=== PATIENT | female | born 1950 | race Caucasian/White ===

== ENCOUNTER → 2021-02-03 15:16 | Outpatient (BNVA) | payer MEDICARE, MEDICAID, SELFPAY | PROVIDERS: Visit Provider Nurse Practitioner | DX: K22.2 Esophageal obstruction (principal) | CPT/HCPCS: 99202 ==

== ENCOUNTER 2021-10-04 18:22 | Inpatient (IN) | payer MEDICARE, MEDICAID, SELFPAY ==
--- NOTE | ~2021-10-04 | XR_ITS ---
EXAMINATION: XR CHEST CLINICAL INFORMATION: Hypoxia. Covid infection. COMPARISON: Previous chest x-ray most recent 10/04/2021 TECHNIQUE: Frontal view of the chest was obtained. FINDINGS: The cardiac and mediastinal contours are stable. The lung volumes are low. There is bilateral multilobar airspace disease. This is greatest in the left lung and appears increased from previous exam. There is no pleural effusion or pneumothorax. There are degenerative changes of the spine. XR/XR chest 1V IMPRESSION: Low lung volumes and worsening bilateral airspace disease.
--- NOTE | ~2021-10-04 | XR_ITS ---
EXAMINATION: PORTABLE CHEST 1 VIEW CLINICAL INFORMATION: covid . COMPARISON: No recent pertinent prior studies are available for comparison. TECHNIQUE: Portable frontal view of the chest was obtained. FINDINGS: Mild asymmetric elevation of the right hemidiaphragm. Patchy bilateral airspace disease is seen without significant effusion, edema, or pneumothorax. Cardiac and mediastinal silhouettes within normal limits for size with mild vascular calcification in the aorta. Degenerative changes in the spine and shoulders. XR/XR chest 1V IMPRESSION: Patchy bilateral airspace disease concerning for atypical or viral infectious etiology in the acute setting.
--- NOTE | ~2021-10-04 | XR_ITS ---
EXAMINATION: XR CHEST CLINICAL INFORMATION: Increased respiratory rate. Covid. COMPARISON: Chest x-ray 10/06/2021 TECHNIQUE: Frontal view of the chest was obtained. FINDINGS: Stable cardiac silhouette. Diffuse bilateral airspace disease demonstrates interval worsening. I do not appreciate any gross lobar consolidation. No large pleural effusion. No pneumothorax. XR/XR chest 1V IMPRESSION: Worsening diffuse bilateral airspace disease.
[2021-10-04 18:40] VITALS: BP 100/54; PULSE 76; RESP 18; TEMP 39.1; O2SAT 95; BMI 27.4
--- NOTE | 2021-10-04 18:53 | ED.SOB ---
HPI - SOB/Dyspnea General Chief Complaint: Dyspnea Stated Complaint: covid + Time Seen by Provider: 10/04/21 18:50 Source: EMS and RN notes reviewed Mode of arrival: EMS Limitations: altered mental status History of Present Illness HPI Narrative: Patient is 71 years old with history of schizoaffective disorder COPD type 2 diabetes anemia not vaccinated against COVID had COVID-19 positive on 09/30 sent from [facility] living for temperature of 102.7 degrees and saturating 72% at room air and more confused semi responsive patient oxygen improved to 94% on 4 L nasal cannula Related Data Home Medications Medication Instructions Recorded Confirmed aspirin 81 mg chewable tablet 81 mg PO DAILY 02/03/21 benztropine 1 mg tablet 1 mg PO BID 02/03/21 bisacodyl 10 mg rectal suppository 10 mg UT DAILY PRN 02/03/21 (Dulcolax (bisacodyl)) divalproex 125 mg capsule,delayed 250 mg PO QID 02/03/21 release sprinkle estradiol 1 g VAGINAL 3XW 02/03/21 gabapentin 300 mg/6 mL (6 mL) oral 100 mg PO BEDTIME 02/03/21 solution haloperidol 5 mg tablet 5 mg PO DAILY 02/03/21 lactulose 10 gram/15 mL oral 10 g PO BEDTIME 02/03/21 solution (Enulose) levothyroxine 75 mcg capsule 75 mcg PO DAILY 02/03/21 lithium carbonate 300 mg tablet 300 mg PO BID 02/03/21 mirabegron 25 mg tablet,extended 25 mg PO DAILY 02/03/21 release 24 hr (Myrbetriq) olanzapine 10 mg tablet 10 mg PO DAILY 02/03/21 polyvinyl alcohol 1.4 % eye drops 1 drp OPHTHALMIC (EYE) BID-QID PRN 02/03/21 (Artificial Tears (polyvinyl alcohol)) timolol 0.5 %-dorzolamide 2 drp OPHTHALMIC (EYE) 02/03/21 %-latanprost 0.005 % (PF) eye drops umeclidinium 62.5 mcg/actuation 1 inh INHALATION DAILY 02/03/21 blister powder for inhalation (Incruse Ellipta) polyvinyl alcohol 1.4 % eye drops 1 drp OPHTHALMIC (EYE) BID 10/04/21 10/04/21 (Artificial Tears (polyvinyl alcohol)) Allergies Allergy/AdvReac Type Severity Reaction Status Date / Time No Known Allergies Allergy Verified 02/03/21 15:27 Review of Systems Review of Systems: Yes Unobtainable due to mental status [facility] Social History Social History Advance Directives: No Advance Directives Information Provided: Yes Physical Exam Vital Signs: Vital Signs: Last Vital Signs Temp 103.4 F H 10/04/21 21:16 Pulse 72 10/04/21 21:16 Resp 18 10/04/21 21:16 BP 114/88 10/04/21 21:16 Pulse Ox 94 10/04/21 21:16 Oxygen Flow Rate 2 10/04/21 18:40 BMI result Body Mass Index 27.4 Appearance: Alert. And awake. Moderate distress Eyes: PERRLA, No Nystagmus ENT: Pharynx normal. Oral Mucosa moist Neck: Normal inspection. Neck supple. CVS: Sinus tachycardia. Pulses normal. Respiratory: Moderate respiratory distress with bilateral prolonged expiration Equal air entry bilateral, no wheezing/rales/rhonchi Abdomen: Soft and nontender. Bowel sounds are present, no mass palpable, no CVA tenderness Skin: Skin warm and dry. Normal skin color. Normal skin turgor. Extremities: No lower extremity edema. 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 No sensory deficit.No cerebellar signs , cranial nerves II-XII intact MDM - SOB/Dyspnea MDM Narrative Medical decision making narrative: Patient with COVID pneumonia with acute respiratory failure on 4 L of oxygen saturating 95%. Will admit patient for supportive treatment for COVID pneumonia Medical Records Attestation: I reviewed the patient's medical records. Lab Data Attestation: I reviewed the patient's lab results. Result diagrams: 10/04/21 19:52 10/04/21 19:53 Labs: Lab Results 10/04/21 10/04/21 10/04/21 Range/Units 19:52 19:52 19:52 WBC 7.7 (4.8-10.8) X10*3/uL RBC 4.35 (4.20-5.50) X10*6/uL Hgb 12.5 (12.0-16.0) g/dl Hct 40.4 (37.0-47.0) % MCV 92.9 (80.0-98.0) fL MCH 28.7 (27.0-33.0) pg MCHC 30.9 L (31.0-35.0) g/dl RDW 14.0 (11.0-16.0) % Plt Count 174 (160-400) X10*3/uL MPV 10.8 (9.4-12.3) fL Immature Gran % (Auto) 0.7 H (0.0-0.4) % Neut % (Auto) 77.9 H (45-73) % Lymph % (Auto) 15.0 L (20-40) % [place] % (Auto) 6.3 (2-11) % Eos % (Auto) 0.0 (0-4) % Baso % (Auto) 0.1 (0-2) % Lymph # (Auto) 1.2 (1.2-4.9) X10*3/uL [place] # (Auto) 0.5 (0.1-1.2) X10*3/uL Eos # (Auto) 0.0 (0.0-0.4) X10*3/uL Baso # (Auto) 0.0 (0.0-0.2) X10*3/uL Abs Immat Gran (auto) 0.05 H (0.00-0.03) X10*3/uL Absolute Neuts (auto) 6.0 (2.0-8.3) x10*3/uL Absolute Nucleated RBC 0.000 (0.0-0.012) X10*3/uL Nucleated RBC % (auto) 0.0 (0.0-0.2) /100WBC PT (9.9-13.0) SEC INR (0.9-1.1) Sodium (135-145) mmol/L Potassium (3.3-5.1) mmol/L Chloride (96-108) mmol/L Carbon Dioxide (22-29) mmol/L Anion Gap (12-20) BUN (9-16) mg/dL Creatinine (0.5-1.4) mg/dL Estim Creat Clear Calc Estimated GFR Random Glucose (60-115) mg/dL Lactic Acid 0.9 (0.5-2.0) mmol/L Calcium (8.4-10.2) mg/dL Magnesium (1.6-2.6) mg/dL Total Bilirubin (0.0-1.0) mg/dL AST (5-31) U/L ALT (0-31) U/L Alkaline Phosphatase (39-117) U/L B-Natriuretic Peptide (<100) pg/mL Total Protein (6.5-8.0) g/dL Albumin (3.5-5.0) g/dL Procalcitonin ng/mL COVID-19 (MARTINA) Positive A (Negative) COVID-19 Clin Com See Note 10/04/21 10/04/21 10/04/21 Range/Units 19:53 19:53 19:53 WBC (4.8-10.8) X10*3/uL RBC (4.20-5.50) X10*6/uL Hgb (12.0-16.0) g/dl Hct (37.0-47.0) % MCV (80.0-98.0) fL MCH (27.0-33.0) pg MCHC (31.0-35.0) g/dl RDW (11.0-16.0) % Plt Count (160-400) X10*3/uL MPV (9.4-12.3) fL Immature Gran % (Auto) (0.0-0.4) % Neut % (Auto) (45-73) % Lymph % (Auto) (20-40) % [place] % (Auto) (2-11) % Eos % (Auto) (0-4) % Baso % (Auto) (0-2) % Lymph # (Auto) (1.2-4.9) X10*3/uL [place] # (Auto) (0.1-1.2) X10*3/uL Eos # (Auto) (0.0-0.4) X10*3/uL Baso # (Auto) (0.0-0.2) X10*3/uL Abs Immat Gran (auto) (0.00-0.03) X10*3/uL Absolute Neuts (auto) (2.0-8.3) x10*3/uL Absolute Nucleated RBC (0.0-0.012) X10*3/uL Nucleated RBC % (auto) (0.0-0.2) /100WBC PT 14.7 H (9.9-13.0) SEC INR 1.3 H (0.9-1.1) Sodium 144 (135-145) mmol/L Potassium 4.3 (3.3-5.1) mmol/L Chloride 111 H (96-108) mmol/L Carbon Dioxide 25 (22-29) mmol/L Anion Gap 12 (12-20) BUN 27 H (9-16) mg/dL Creatinine 0.82 (0.5-1.4) mg/dL Estim Creat Clear Calc 65.5 Estimated GFR > 60 Random Glucose 108 (60-115) mg/dL Lactic Acid (0.5-2.0) mmol/L Calcium 8.1 L (8.4-10.2) mg/dL Magnesium 3.4 H (1.6-2.6) mg/dL Total Bilirubin 0.3 (0.0-1.0) mg/dL AST 37 H (5-31) U/L ALT 12 (0-31) U/L Alkaline Phosphatase 53 (39-117) U/L B-Natriuretic Peptide 78 (<100) pg/mL Total Protein 5.9 L (6.5-8.0) g/dL Albumin 3.2 L (3.5-5.0) g/dL Procalcitonin ng/mL COVID-19 (MARTINA) (Negative) COVID-19 Clin Com 10/04/21 Range/Units 19:53 WBC (4.8-10.8) X10*3/uL RBC (4.20-5.50) X10*6/uL Hgb (12.0-16.0) g/dl Hct (37.0-47.0) % MCV (80.0-98.0) fL MCH (27.0-33.0) pg MCHC (31.0-35.0) g/dl RDW (11.0-16.0) % Plt Count (160-400) X10*3/uL MPV (9.4-12.3) fL Immature Gran % (Auto) (0.0-0.4) % Neut % (Auto) (45-73) % Lymph % (Auto) (20-40) % [place] % (Auto) (2-11) % Eos % (Auto) (0-4) % Baso % (Auto) (0-2) % Lymph # (Auto) (1.2-4.9) X10*3/uL [place] # (Auto) (0.1-1.2) X10*3/uL Eos # (Auto) (0.0-0.4) X10*3/uL Baso # (Auto) (0.0-0.2) X10*3/uL Abs Immat Gran (auto) (0.00-0.03) X10*3/uL Absolute Neuts (auto) (2.0-8.3) x10*3/uL Absolute Nucleated RBC (0.0-0.012) X10*3/uL Nucleated RBC % (auto) (0.0-0.2) /100WBC PT (9.9-13.0) SEC INR (0.9-1.1) Sodium (135-145) mmol/L Potassium (3.3-5.1) mmol/L Chloride (96-108) mmol/L Carbon Dioxide (22-29) mmol/L Anion Gap (12-20) BUN (9-16) mg/dL Creatinine (0.5-1.4) mg/dL Estim Creat Clear Calc Estimated GFR Random Glucose (60-115) mg/dL Lactic Acid (0.5-2.0) mmol/L Calcium (8.4-10.2) mg/dL Magnesium (1.6-2.6) mg/dL Total Bilirubin (0.0-1.0) mg/dL AST (5-31) U/L ALT (0-31) U/L Alkaline Phosphatase (39-117) U/L B-Natriuretic Peptide (<100) pg/mL Total Protein (6.5-8.0) g/dL Albumin (3.5-5.0) g/dL Procalcitonin 0.11 ng/mL COVID-19 (MARTINA) (Negative) COVID-19 Clin Com ECG Data Attestation: I personally reviewed and interpreted this ECG as follows: Interpretation: Normal sinus rhythm heart rate 73 beats per minute normal intervals normal axis no acute ischemic changes impression normal EKG Discharge Plan Discharge Clinical Impression: Acute respiratory failure due to COVID-19 Patient Disposition: Admitted As Inpatient
--- NOTE | 2021-10-04 19:00 | ECG_ITS ---
Test Reason : Shortness of breath Blood Pressure : / mmHG Vent. Rate : 073 BPM Atrial Rate : 073 BPM P-R Int : 142 ms QRS Dur : 078 ms QT Int : 388 ms P-R-T Axes : -14 -13 059 degrees QTc Int : 427 ms Normal sinus rhythm Normal ECG No previous ECGs available Referred By: Darrel Regalado Electronically Signed By:DEJON WEISS MD
[2021-10-04] MEDS: Albuterol/Iprat 2.5/0.5MG 3 ML AMPUL.NEB INHALE (19:57)
[2021-10-04 19:59] LABS: MANUAL DIFF FLAG NO
[2021-10-04 20:01] LABS: Basophils Percent Auto 0.1 % (0-2); Hematocrit 40.4 % (37.0-47.0); Hemoglobin 12.5 g/dl (12.0-16.0); Imm Gran Abs Auto 0.05 X10*3/uL (0.00-0.03); Imm Gran Pct Auto 0.7 % (0.0-0.4); Lymphocytes Absolute Auto 1.2 X10*3/uL (1.2-4.9); Mean Corpuscular HGB Conc 30.9 g/dl (31.0-35.0); Mean Corpuscular Hemoglobin 28.7 pg (27.0-33.0); Mean Corpuscular Volume 92.9 fL (80.0-98.0); Mean Platelet Volume 10.8 fL (9.4-12.3); Monocytes Absolute Auto 0.5 X10*3/uL (0.1-1.2); Monocytes Percent Auto 6.3 % (2-11); Neutrophils Percent Auto 77.9 % (45-73); Platelet Count 174 X10*3/uL (160-400); Red Blood Count 4.35 X10*6/uL (4.20-5.50); White Blood Count 7.7 X10*3/uL (4.8-10.8)
[2021-10-04 20:06] LABS: INTERNATIONAL NORM RATIO 1.3 (0.9-1.1); Prothrombin Time 14.7 SEC (9.9-13.0)
[2021-10-04 20:11] LABS: COVID-19 Test Positive (Negative)
[2021-10-04 20:16] LABS: Lactic Acid 0.9 mmol/L (0.5-2.0)
[2021-10-04 20:21] LABS: Alanine Aminotransferase 12 U/L (0-31); Albumin Level 3.2 g/dL (3.5-5.0); Alkaline Phosphatase 53 U/L (39-117); Anion Gap 12 (12-20); Aspartate Amino Transferase 37 U/L (5-31); Bilirubin Total 0.3 mg/dL (0.0-1.0); Blood Urea Nitrogen 27 mg/dL (9-16); Calcium 8.1 mg/dL (8.4-10.2); Carbon Dioxide 25 mmol/L (22-29); Chloride 111 mmol/L (96-108); Creatinine Clr Calc Pharmacy 65.5; Estimated Glomerular Filt Rate > 60; Glucose Random 108 mg/dL (60-115); Magnesium 3.4 mg/dL (1.6-2.6); Potassium 4.3 mmol/L (3.3-5.1); Sodium 144 mmol/L (135-145); Total Protein 5.9 g/dL (6.5-8.0)
[2021-10-04 20:28] LABS: B Type Natriuretic Peptide 78 pg/mL (<100)
[2021-10-04] MEDS: cefTRIAXone sodium 1 GM in 0.9 % Sodium Chloride 50 ML IV (20:30)
--- NOTE | 2021-10-04 20:37 | P.HPHOSP_ITS ---
History of Present Illness Date of Service: 10/04/21 Chief Complaint: hypoxic this is a 71 yo F with hx of pschizophrenia, DM, COPD, and chronic anemia who is sent to the [facility] from detention for hypoxia. per documentation pt was found to be satidelvin friedman the 70s on RA. Pt herself is awake, but very lethargic and confused. she is not answering questions and just moaning. unable to get my history from her. No ROS given her medical status,. Pt is unvaccinated against covid. was tested positive for COVID 19 on 09/30 at the facility. Pt was also found to have a temp of 102 at the detention. On arrival to our hospital pt found to have a Temp of 102.3 , BP of 100/54. pt currently on 3L of [place] anabelle friedman the mid 80s. labs reviewed, unremarkable, procalcitonin 0.11, chest xray showed patchy bilateral airspace ds [place] acerning for atypical or viral depthinfectious etiology in the acute setting Pt will be admitted for further management PMHX obtained from [facility] home notes Review of Systems Review of Systems: Yes all other systems are reviewed and are negative [facility] Medical History (Updated 10/05/21 @ 03:19 by Abiel Lopez MD) COPD (chronic obstructive pulmonary disease) Diabetes Schizophrenia Social History Advance Directives: No Advance Directives Information Provided: Yes Meds Allergies Allergy/AdvReac Type Severity Reaction Status Date / Time No Known Allergies Allergy Verified 02/03/21 15:27 Home Medications Medication Instructions Recorded Confirmed Last Taken Type aspirin 81 mg chewable tablet 81 mg PO DAILY 02/03/21 10/04/21 10/03/21 History benztropine 1 mg tablet 1 mg PO BID 02/03/21 10/04/21 10/03/21 History divalproex 125 mg capsule,delayed 1,500 mg PO BEDTIME 02/03/21 10/04/21 10/03/21 History release sprinkle estradiol 2 g VAGINAL MOWEFR@2100 02/03/21 10/04/21 10/03/21 History haloperidol 5 mg tablet 5 mg PO BID 02/03/21 10/04/21 10/03/21 History mirabegron 25 mg tablet,extended 25 mg PO DAILY 02/03/21 10/04/21 10/03/21 History release 24 hr (Myrbetriq) olanzapine 10 mg tablet 10 mg PO DAILY 02/03/21 10/04/21 10/03/21 History umeclidinium 62.5 mcg/actuation 1 inh INHALATION DAILY 02/03/21 10/04/21 10/03/21 History blister powder for inhalation (Incruse Ellipta) bisacodyl 10 mg rectal suppository 10 mg AL Q2D@1000 10/04/21 10/04/21 10/01/21 History divalproex 125 mg capsule,delayed 500 mg PO DAILY 10/04/21 10/04/21 10/03/21 History release sprinkle (Depakote Sprinkles) gabapentin 300 mg capsule 300 mg PO DAILY 10/04/21 10/04/21 10/03/21 History latanoprost 0.005 % eye drops 1 drp OPHTHALMIC (EYE) BEDTIME 10/04/21 10/04/21 10/03/21 History levothyroxine 88 mcg tablet 88 mcg PO DAILY@0600 10/04/21 10/04/21 10/04/21 History lithium carbonate 300 mg 300 mg PO BID 10/04/21 10/04/21 10/03/21 History tablet,extended release olanzapine 20 mg tablet 20 mg PO BEDTIME 10/04/21 10/04/21 10/03/21 History omeprazole 40 mg capsule,delayed 40 mg PO DAILY@0630 10/04/21 10/04/21 10/04/21 History release polyethylene glycol 3350 17 17 g PO DAILY 10/04/21 10/04/21 10/03/21 History gram/dose oral powder (Miralax) polyvinyl alcohol 1.4 % eye drops 1 drp OPHTHALMIC (EYE) BID 10/04/21 10/04/21 10/04/21 History (Artificial Tears (polyvinyl alcohol)) Physical Exam Vital Signs and Narrative: Vital Signs: Last Vital Signs Temp 102.3 F H 10/04/21 18:40 Pulse 76 10/04/21 18:40 Resp 18 10/04/21 18:40 BP 100/54 L 10/04/21 18:40 Pulse Ox 95 01/25/22 18:40 Oxygen Flow Rate 2 10/04/21 18:40 BMI result Body Mass Index 27.4 Const: Other: confused, not following commads Eyes: Pupils: Equal, round and reactive pupils present Resp: Other: bilateral crackles Effort & Inspection: normal respiratory effort Cardio: Rate: regular rate Rhythm: regular rhythm GI: Palpation (GI): Soft to palpation Auscultation: normal bowel sounds Skin: General skin exam: no rashes or lesions noted Neuro: Cranial nerves: Yes Equal, round and reactive pupils present Extrem: General: Yes normal to inspection and Yes no pedal edema Results Labs CBC and Chem 7: 10/04/21 19:52 10/04/21 19:53 Labs: Laboratory Results - last 24 hr 10/04/21 10/04/21 10/04/21 19:52 19:52 19:52 MCV 92.9 MCH 28.7 MCHC 30.9 L RDW 14.0 Plt Count 174 MPV 10.8 Immature Gran % (Auto) 0.7 H Neut % (Auto) 77.9 H Lymph % (Auto) 15.0 L [place] % (Auto) 6.3 Eos % (Auto) 0.0 Baso % (Auto) 0.1 Lymph # (Auto) 1.2 [place] # (Auto) 0.5 Eos # (Auto) 0.0 Baso # (Auto) 0.0 Abs Immat Gran (auto) 0.05 H Absolute Neuts (auto) 6.0 Absolute Nucleated RBC 0.000 Nucleated RBC % (auto) 0.0 PT INR Anion Gap Estim Creat Clear Calc Estimated GFR Random Glucose Lactic Acid 0.9 Calcium Magnesium Total Bilirubin AST ALT Alkaline Phosphatase B-Natriuretic Peptide Total Protein Albumin COVID-19 (MARTINA) Positive A COVID-19 Clin Com See Note 10/04/21 10/04/21 10/04/21 19:53 19:53 19:53 MCV MCH MCHC RDW Plt Count MPV Immature Gran % (Auto) Neut % (Auto) Lymph % (Auto) [place] % (Auto) Eos % (Auto) Baso % (Auto) Lymph # (Auto) [place] # (Auto) Eos # (Auto) Baso # (Auto) Abs Immat Gran (auto) Absolute Neuts (auto) Absolute Nucleated RBC Nucleated RBC % (auto) PT 14.7 H INR 1.3 H Anion Gap 12 Estim Creat Clear Calc 65.5 Estimated GFR > 60 Random Glucose 108 Lactic Acid Calcium 8.1 L Magnesium 3.4 H Total Bilirubin 0.3 AST 37 H ALT 12 Alkaline Phosphatase 53 B-Natriuretic Peptide 78 Total Protein 5.9 L Albumin 3.2 L COVID-19 (MARTINA) COVID-19 Clin Com Imaging Radiologist's Impressions: Impressions Chest X-Ray 10/04/21 19:20 IMPRESSION: Patchy bilateral airspace disease concerning for atypical or viral infectious etiology in the acute setting. Assessment and Plan (1) Acute respiratory failure due to COVID-19: Status: Acute (2) Sepsis: Status: Acute this is a 71 yo F with pmx as above who is a [facility], unvaccinated aginast covid who presents to hospital with acute hypoxic resp failure # Acute hypoxic resp failure - 2/2 covid 19 PNA - No evidence to suggest PE - Pro-calcitonin 0.11 - likely viral - dexamethasone - duoneb tx given hx of COPD - monitor resp status - infectious ds consulted # Sepsis - most likely 2/2 covid 19 pna - cxr as above - will obtain UA - dexamethasone - no abx at this time as no evidence of bacterial pna - follow cultures # Mood ds: - continue home mood stabilizers # Seizure? - continue epileptic mes DVT ppx: lovenox Quality Stroke Does the patient have a stroke diagnosis?: No VTE Prior VTE?: No VTE Risk Level:: Medical - moderate - high VTE Device Contraindication: Treatment Not Indicated VTE Drug Contraindication: N/A - Med Ordered
[2021-10-04] MEDS: Azithromycin 500 MG in 0.9 % Sodium Chloride 250 ML 125 MG IV (21:08)
[2021-10-04] MEDS: Acetaminophen 325 MG TABLET 650 MG PO (21:09)
[2021-10-04] MEDS: Enoxaparin Sodium 40 MG/0.4 ML SYRINGE SUBCUT (21:10)
[2021-10-04 21:16] VITALS: BP 114/88; PULSE 72; RESP 18; TEMP 39.7; O2SAT 94
[2021-10-04] MEDS: dexAMETHasone sod phosphate 4 MG/ML VIAL 6 MG IVPUSH ×2 (21:20→22:01)
[2021-10-04 21:23] LABS: Procalcitonin 0.11 ng/mL
--- NOTE | 2021-10-04 22:01 | PHA.MEDREC ---
MED REC COMPLETE, NO ISSUES Pharmacy Consult ? Medication Reconciliation Pharmacy has completed the medication reconciliation.
[2021-10-05] VITALS (12 sets, daily range): BP systolic 78–141; BP diastolic 46–74; PULSE 55–115; RESP 18–23; TEMP 36.4–38.1; O2SAT 83–99
[2021-10-05] MEDS: Albuterol/Iprat 2.5/0.5MG 3 ML AMPUL.NEB INHALE ×2 (07:29→19:26)
[2021-10-05 07:31] LABS: Glucose, Whole Blood 121 mg/dL (60-115)
[2021-10-05] MEDS: Omeprazole 40 MG CAPSULE.DR PO (07:56)
[2021-10-05] MEDS: Levothyroxine Sodium 88 MCG TABLET PO (07:56)
--- NOTE | 2021-10-05 08:05 | PC.NURSE ---
PT AWAKE AND ASKING TO HAVE APPLE JUICE AND WESLEY TATIANA. SHE HAS POOR SELF AWARENESS FOR SAFETY, SHE IS TREMULOUS WHEN TAKING MEDS. SHE ALSO APPEARS TO HAVE THRUSH LIKE APPEARANCE TO HER TONGUE. NON COMPLIANT WITH KEEPING HER NASAL CANNULA IN PLACE TO SUPPORT HER O2
[2021-10-05 09:15] LABS: MANUAL DIFF FLAG NO
[2021-10-05 09:17] LABS: Basophils Percent Auto 0.1 % (0-2); Hematocrit 42.2 % (37.0-47.0); Hemoglobin 12.7 g/dl (12.0-16.0); Imm Gran Abs Auto 0.05 X10*3/uL (0.00-0.03); Imm Gran Pct Auto 0.6 % (0.0-0.4); Lymphocytes Absolute Auto 1.4 X10*3/uL (1.2-4.9); Lymphocytes Percent Auto 15.5 % (20-40); Mean Corpuscular HGB Conc 30.1 g/dl (31.0-35.0); Mean Corpuscular Hemoglobin 28.4 pg (27.0-33.0); Mean Corpuscular Volume 94.4 fL (80.0-98.0); Mean Platelet Volume 10.4 fL (9.4-12.3); Monocytes Absolute Auto 0.6 X10*3/uL (0.1-1.2); Monocytes Percent Auto 6.9 % (2-11); Neutrophils Absolute Auto 6.8 x10*3/uL (2.0-8.3); Neutrophils Percent Auto 76.9 % (45-73); Platelet Count 184 X10*3/uL (160-400); Red Blood Count 4.47 X10*6/uL (4.20-5.50); Red Cell Distribution Width 13.7 % (11.0-16.0); White Blood Count 8.8 X10*3/uL (4.8-10.8)
[2021-10-05 09:35] LABS: Anion Gap 17 (12-20); Blood Urea Nitrogen 30 mg/dL (9-16); Calcium 8.5 mg/dL (8.4-10.2); Carbon Dioxide 24 mmol/L (22-29); Chloride 110 mmol/L (96-108); Creatinine Clr Calc Pharmacy 70.7; Estimated Glomerular Filt Rate > 60; Glucose Random 128 mg/dL (60-115); Potassium 3.5 mmol/L (3.3-5.1); Sodium 147 mmol/L (135-145)
[2021-10-05] MEDS: Lithium Carbonate ER 300 MG TABLET.ER PO ×2 (10:10→21:15)
[2021-10-05] MEDS: OLANZapine 10 MG TABLET PO (10:11)
[2021-10-05] MEDS: Divalproex Sodium Sprinkles 125 MG CAP.DR.SPR 500 MG PO (10:12)
[2021-10-05] MEDS: Benztropine Mesylate 1 MG TABLET PO ×2 (10:12→21:15)
[2021-10-05] MEDS: Gabapentin 300 MG CAPSULE PO (10:17)
[2021-10-05] MEDS: Aspirin 81 MG TAB.CHEW PO (10:18)
[2021-10-05] MEDS: dexAMETHasone sod phosphate 4 MG/ML VIAL 6 MG IVPUSH (10:19)
[2021-10-05] MEDS: bisacodyL 10 MG SUPP.RECT PR (10:19)
[2021-10-05] MEDS: HaloperidoL 5 MG TABLET PO ×2 (10:20→21:15)
[2021-10-05] MEDS: polyethylene glycoL 3350 17 GM POWD.PACK PO (10:22)
[2021-10-05] MEDS: Artificial Tears 15 ML DROPS 1 DROP EYE-BOTH (10:24)
[2021-10-05] MEDS: Mirabegron 25 MG TAB.ER.24H PO (10:25)
--- NOTE | 2021-10-05 10:45 | PC.NURSE ---
INCONTIENT OF LARGE AMOUNT OF STOOL. PT CLEANED AND REPOSITIONED, MEDICATED CHARTED.
--- NOTE | 2021-10-05 11:38 | MHC.CM.ED ---
Attempted to meet with patient in regards to discharge planning. Nursing care currently being provided. 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 Patient is wheelchair bound at baseline. Patient tested positive for Covid at facility on 09/30. Copy of guardianship obtained from [facility]. Anticipate patient will return to [facility] via BLS when medically stable. IMM explained and sent via certified mail. Continue to monitor for d/c needs.
[2021-10-05 13:28] LABS: Glucose, Whole Blood 95 mg/dL (60-115)
--- NOTE | 2021-10-05 13:54 | PM.EVENT ---
Event Note Date of Service: 10/05/21 Event Note: Rapid response called at 1345 due to unresponsiveness. was tx from the ED and was admitted for covid hypoxia and sepsis. She was stable in the ED with blood pressures within acceptable limits. She was given a dose of haldol for agitation in the ED at 1020 which may or may not have contributed to her sudden hypotension and unresponsiveness. Nevertheless it took about 5 minutes to get a response with sternal rub. Her blood pressure was noted to be 78/46 and several times remained similar. Neck IJ difficult to run fluids. new IV lines placed and 2 liters of IV fluids ordered to run as bolus. BP came up to 80's systolic. Dr. Doc East came up to see the patient and agreed to continue fluids and follow BP, no ICU needed at this time. Will follow blood pressures, avoid sedative and antihypertensive medications.
[2021-10-05] MEDS: 0.9 % Sodium Chloride 1,000 ML 999 ML IVCONT ×2 (14:00→15:22)
--- NOTE | 2021-10-05 14:06 | P.PNIM_ITS ---
Subjective Subjective Date of Service: 10/05/21 Review of Systems Follow up covid 19 hypoxia confused, unable to give hx Physical Exam Verdana 4l Vital Signs: Verdana 4d Verdana 4d Vital Signs: Verdana 4d Verdana 4Bd Last Vital Signs Verdana 4d Design Technology Teacher New 4d [place] New 4d Temp 97.7 F 10/05/21 13:15 Design Technology Teacher New 4d Pulse 55 10/05/21 13:15 Design Technology Teacher New 4d Resp 23 H 10/05/21 13:15 BP 78/46 L 10/05/21 13:15 Pulse Ox 91 L 10/05/21 13:15 Oxygen Flow Rate 2 10/04/21 18:40 BMI result Body Mass Index 27.4 Appearing in no acute distress lung sounds are clear to auscultation heart regular rate rhythm, clear S1, S2 positive bowel sounds, abdomen is soft, nontender neuro patient is alert, short episode of unresponsiveness Objective Data Active Medications Acetaminophen (Acetaminophen 325 Mg Tablet) 650 mg PO Q6H PRN PRN Reason: Pain, Mild (Pain Scale 1-3) Albuterol/Ipratropium (Albuterol/Iprat 2.5/0.5mg 3 Ml Ampul.Neb) 3 ml INHALE RQ4H PRN PRN Reason: Shortness of Breath/Wheezing Albuterol/Ipratropium (Albuterol/Iprat 2.5/0.5mg 3 Ml Ampul.Neb) 3 ml INHALE RQ4H WHILE AWAKE [facility] Last Admin: 10/05/21 12:07 Dose: Not Given Documented by: KATINA Non-Admin Reason: Not In Room Artificial Tears (Artificial Tears 15 Ml Drops) 1 drop EYE-BOTH BID [facility] Last Admin: 10/05/21 10:24 Dose: 1 drop Documented by: ANURAG Aspirin (Aspirin 81 Mg Tab.Chew) 81 mg PO DAILY [facility] Last Admin: 10/05/21 10:18 Dose: 81 mg Documented by: ANURAG Benztropine Mesylate (Benztropine Mesylate 1 Mg Tablet) 1 mg PO BID [facility] Last Admin: 10/05/21 10:12 Dose: 1 mg Documented by: ANURAG Bisacodyl (Bisacodyl 10 Mg Supp.Rect) 10 mg CO Q2D@1000 [facility] Last Admin: 10/05/21 10:19 Dose: 10 mg Documented by: ANURAG Dexamethasone Sodium Phosphate (Dexamethasone Sod Phosphate 4 Mg/Ml Vial) 6 mg IVPUSH DAILY [facility] Last Admin: 10/05/21 10:19 Dose: 6 mg Documented by: ANURAG Dextrose (Dextrose 50 % 25 Gm/50 Ml Syringe) 25 gm IVPUSH Q15M PRN; Protocol PRN Reason: per Hypoglycemia Standing Ord. Divalproex Sodium (Divalproex Sodium Sprinkles 125 Mg ) 500 mg PO DAILY [facility] Last Admin: 10/05/21 10:12 Dose: 500 mg Documented by: ANURAG Divalproex Sodium (Divalproex Sodium Sprinkles 125 Mg ) 1,500 mg PO BEDTIME [facility] Docusate Sodium (Docusate Sodium 100 Mg Capsule) 100 mg PO DAILY PRN PRN Reason: Constipation Enoxaparin Sodium (Enoxaparin Sodium 40 Mg/0.4 Ml Syringe) 40 mg SUBCUT Q24H [facility] Last Admin: 10/04/21 21:10 Dose: 40 mg Documented by: ASHTYN Gabapentin (Gabapentin 300 Mg Capsule) 300 mg PO DAILY [facility] Last Admin: 10/05/21 10:17 Dose: 300 mg Documented by: ANURAG Glucose (Glucose Gel 15 Gm Gel..Gram.) 15 gm PO Q15M PRN; Protocol PRN Reason: per Hypoglycemia Standing Ord. Haloperidol (Haloperidol 5 Mg Tablet) 5 mg PO BID [facility] Last Admin: 10/05/21 10:20 Dose: 5 mg Documented by: ANURAG Ceftriaxone Sodium 1 gm/ (Sodium Chloride) 50 mls @ 100 mls/hr IV Q24H [facility] Azithromycin 500 mg/ Sodium (Chloride) 250 mls @ 125 mls/hr IV Q24H [facility] Last Infusion: 10/05/21 02:40 Dose: 0 mls/hr Documented by: ASHTYN Sodium Chloride (Ns) 1,000 mls @ 999 mls/hr IVCONT .Q1H1M [facility] Stop: 10/05/21 15:45 Insulin Human Lispro (Insulin Lispro 100 Unit/Ml 3 Ml Vial) 0 unit SUBCUT QIDACHS [facility]; Protocol Last Admin: 10/05/21 14:03 Dose: Not Given Documented by: SUNI Non-Admin Reason: bs 91 Latanoprost (Latanoprost 0.005 % Ophth Iza 2.5 Ml Drops) 1 drop EYE-BOTH BEDTIME [facility] Levothyroxine Sodium (Levothyroxine Sodium 88 Mcg Tablet) 88 mcg PO DAILY@0600 [facility] Last Admin: 10/05/21 07:56 Dose: 88 mcg Documented by: ANURAG [place] Carbonate ([place] Carbonate Er 300 Mg Tablet.Er) 300 mg PO BID [facility] Last Admin: 10/05/21 10:10 Dose: 300 mg Documented by: ANURAG Mirabegron (Mirabegron 25 Mg Tab.Er.24h) 25 mg PO DAILY [facility] Last Admin: 10/05/21 10:25 Dose: 25 mg Documented by: ANURAG Olanzapine (Olanzapine 10 Mg Tablet) 10 mg PO DAILY [facility] Last Admin: 10/05/21 10:11 Dose: 10 mg Documented by: ANURAG Olanzapine (Olanzapine 10 Mg Tablet) 20 mg PO BEDTIME [facility] Omeprazole (Omeprazole 40 Mg Capsule.Dr) 40 mg PO DAILY@0630 [facility] Last Admin: 10/05/21 07:56 Dose: 40 mg Documented by: ANURAG Ondansetron HCl (Ondansetron Hcl 4 Mg/2 Ml Vial) 4 mg IVPUSH Q8H PRN PRN Reason: Nausea and Vomiting Polyethylene Glycol (Polyethylene Glycol 3350 17 Gm Powd.Pack) 17 gm PO DAILY [facility] Last Admin: 10/05/21 10:22 Dose: 17 gm Documented by: ANURAG Tiotropium [place] (Tiotropium [place] 18 Mcg Cap.W.Dev) 1 puff INHALE RDAILY [facility] Labs CBC & Chem 7: 10/05/21 09:11 10/05/21 09:11 Labs: Laboratory Results - last 24 hr 10/04/21 10/04/21 10/04/21 19:52 19:52 19:52 MCV 92.9 MCH 28.7 MCHC 30.9 L RDW 14.0 Plt Count 174 MPV 10.8 Immature Gran % (Auto) 0.7 H Neut % (Auto) 77.9 H Lymph % (Auto) 15.0 L [place] % (Auto) 6.3 Eos % (Auto) 0.0 Baso % (Auto) 0.1 Lymph # (Auto) 1.2 [place] # (Auto) 0.5 Eos # (Auto) 0.0 Baso # (Auto) 0.0 Abs Immat Gran (auto) 0.05 H Absolute Neuts (auto) 6.0 Absolute Nucleated RBC 0.000 Nucleated RBC % (auto) 0.0 PT INR Anion Gap Estim Creat Clear Calc Estimated GFR POC Glucose Random Glucose Lactic Acid 0.9 Calcium Magnesium Total Bilirubin AST ALT Alkaline Phosphatase B-Natriuretic Peptide Total Protein Albumin Procalcitonin COVID-19 (MARTINA) Positive A COVID-19 Clin Com See Note 10/04/21 10/04/21 10/04/21 19:53 19:53 19:53 MCV MCH MCHC RDW Plt Count MPV Immature Gran % (Auto) Neut % (Auto) Lymph % (Auto) [place] % (Auto) Eos % (Auto) Baso % (Auto) Lymph # (Auto) [place] # (Auto) Eos # (Auto) Baso # (Auto) Abs Immat Gran (auto) Absolute Neuts (auto) Absolute Nucleated RBC Nucleated RBC % (auto) PT 14.7 H INR 1.3 H Anion Gap 12 Estim Creat Clear Calc 65.5 Estimated GFR > 60 POC Glucose Random Glucose 108 Lactic Acid Calcium 8.1 L Magnesium 3.4 H Total Bilirubin 0.3 AST 37 H ALT 12 Alkaline Phosphatase 53 B-Natriuretic Peptide 78 Total Protein 5.9 L Albumin 3.2 L Procalcitonin COVID-19 (MARTINA) COVID-19 Sealed Com 10/04/21 10/05/21 10/05/21 19:53 07:18 09:11 MCV 94.4 MCH 28.4 MCHC 30.1 L RDW 13.7 Plt Count 184 MPV 10.4 Immature Gran % (Auto) 0.6 H Neut % (Auto) 76.9 H Lymph % (Auto) 15.5 L [place] % (Auto) 6.9 Eos % (Auto) 0.0 Baso % (Auto) 0.1 Lymph # (Auto) 1.4 [place] # (Auto) 0.6 Eos # (Auto) 0.0 Baso # (Auto) 0.0 Abs Immat Gran (auto) 0.05 H Absolute Neuts (auto) 6.8 Absolute Nucleated RBC 0.000 Nucleated RBC % (auto) 0.0 PT INR Anion Gap Estim Creat Clear Calc Estimated GFR POC Glucose 121 H Random Glucose Lactic Acid Calcium Magnesium Total Bilirubin AST ALT Alkaline Phosphatase B-Natriuretic Peptide Total Protein Albumin Procalcitonin 0.11 COVID-19 (MARTINA) COVID-19 Clin Com 10/05/21 10/05/21 09:11 13:25 MCV MCH MCHC RDW Plt Count MPV Immature Gran % (Auto) Neut % (Auto) Lymph % (Auto) [place] % (Auto) Eos % (Auto) Baso % (Auto) Lymph # (Auto) [place] # (Auto) Eos # (Auto) Baso # (Auto) Abs Immat Gran (auto) Absolute Neuts (auto) Absolute Nucleated RBC Nucleated RBC % (auto) PT INR Anion Gap 17 Estim Creat Clear Calc 70.7 Estimated GFR > 60 POC Glucose 95 Random Glucose 128 H Lactic Acid Calcium 8.5 Magnesium Total Bilirubin AST ALT Alkaline Phosphatase B-Natriuretic Peptide Total Protein Albumin Procalcitonin COVID-19 (MARTINA) COVID-19 Clin Com Assessment and Plan (1) Sepsis: Status: Acute (2) Acute respiratory failure due to COVID-19: Status: Acute Plan This is a 71 yo F with pmx as above who is a [facility], unvaccinated against covid who presents to hospital with acute hypoxic resp failure Acute metabolic encephalopathy Sudden, possibly secondary to hypotension vs medication related Responded to sternal rub continue to follow mental status closely Hypotension rapid response called, see event note 2 liter bolus now follow BP closely avoid antihypertensive medications Acute hypoxic resp failure covid 19 PNA No evidence to suggest PE Pro-calcitonin 0.11 - likely viral dexamethasone duoneb tx given hx of COPD monitor resp status ID consulted Viral Sepsis secondary to covid 19 pna will obtain UA follow cultures Mood continue home mood stabilizers Seizure? continue home medications DVT ppx: lovenox Attending Dr. Lance DNR Quality Stroke Does the patient have a stroke diagnosis?: No VTE Prior VTE?: No VTE Risk Level:: Medical - moderate - high VTE Device Contraindication: Treatment Not Indicated VTE Drug Contraindication: N/A - Med Ordered
[2021-10-05 16:12] LABS: Glucose, Whole Blood 90 mg/dL (60-115)
[2021-10-05 19:32] LABS: Glucose, Whole Blood 119 mg/dL (60-115)
[2021-10-05] MEDS: cefTRIAXone sodium 1 GM in 0.9 % Sodium Chloride 50 ML IV (21:01)
[2021-10-05] MEDS: OLANZapine 10 MG TABLET 20 MG PO (21:14)
[2021-10-05] MEDS: Divalproex Sodium Sprinkles 125 MG CAP.DR.SPR 1500 MG PO (21:15)
[2021-10-05] MEDS: Enoxaparin Sodium 40 MG/0.4 ML SYRINGE SUBCUT (21:15)
[2021-10-05] MEDS: Azithromycin 500 MG in 0.9 % Sodium Chloride 250 ML 125 MG IV (21:47)
[2021-10-06] VITALS (9 sets, daily range): BP systolic 103–133; BP diastolic 56–64; PULSE 63–86; RESP 18–20; TEMP 36.8–37.4; O2SAT 85–93
--- NOTE | 2021-10-06 00:53 | PC.NURSE ---
Eye drops not available-not given. Passed this along in report. Pt refused purewick-taken off. Pt incontinent of urine.
[2021-10-06] MEDS: Levothyroxine Sodium 88 MCG TABLET PO (06:21)
[2021-10-06] MEDS: Omeprazole 40 MG CAPSULE.DR PO (06:21)
[2021-10-06 06:46] LABS: Hematocrit 43.9 % (37.0-47.0); Hemoglobin 12.6 g/dl (12.0-16.0); Mean Corpuscular HGB Conc 28.7 g/dl (31.0-35.0); Mean Corpuscular Hemoglobin 28.4 pg (27.0-33.0); Mean Corpuscular Volume 98.9 fL (80.0-98.0); NRBC Pct Auto 0.2 /100WBC (0.0-0.2); Platelet Count 144 X10*3/uL (160-400); Red Blood Count 4.44 X10*6/uL (4.20-5.50); Red Cell Distribution Width 13.7 % (11.0-16.0); White Blood Count 8.7 X10*3/uL (4.8-10.8)
[2021-10-06 07:05] LABS: Lactate Dehydrogenase 603 U/L (122-220)
[2021-10-06 07:13] LABS: Blood Urea Nitrogen 20 mg/dL (9-16); Calcium 8.1 mg/dL (8.4-10.2); Creatinine Clr Calc Pharmacy 85.3; Estimated Glomerular Filt Rate > 60; Glucose Random 87 mg/dL (60-115)
[2021-10-06 07:44] LABS: Anion Gap 17 (12-20); Carbon Dioxide 18 mmol/L (22-29); Chloride 114 mmol/L (96-108); Potassium 4.6 mmol/L (3.3-5.1); Sodium 144 mmol/L (135-145)
[2021-10-06] MEDS: Albuterol/Iprat 2.5/0.5MG 3 ML AMPUL.NEB INHALE ×3 (08:11→15:41)
[2021-10-06 08:14] LABS: Glucose, Whole Blood 122 mg/dL (60-115)
[2021-10-06 10:32] LABS: MANUAL DIFF FLAG NO
[2021-10-06 10:37] LABS: Basophils Percent Auto 0.1 % (0-2); Hematocrit 41.7 % (37.0-47.0); Hemoglobin 12.7 g/dl (12.0-16.0); Imm Gran Abs Auto 0.08 X10*3/uL (0.00-0.03); Lymphocytes Absolute Auto 0.6 X10*3/uL (1.2-4.9); Lymphocytes Percent Auto 8.1 % (20-40); Mean Corpuscular HGB Conc 30.5 g/dl (31.0-35.0); Mean Corpuscular Hemoglobin 28.9 pg (27.0-33.0); Mean Corpuscular Volume 94.8 fL (80.0-98.0); Mean Platelet Volume 10.7 fL (9.4-12.3); Monocytes Absolute Auto 0.3 X10*3/uL (0.1-1.2); Monocytes Percent Auto 4.3 % (2-11); NRBC Pct Auto 0.3 /100WBC (0.0-0.2); Neutrophils Absolute Auto 6.6 x10*3/uL (2.0-8.3); Neutrophils Percent Auto 86.5 % (45-73); Platelet Count 207 X10*3/uL (160-400); White Blood Count 7.7 X10*3/uL (4.8-10.8)
[2021-10-06 10:44] LABS: D Dimer High Sensitivity 554 NG/ML
[2021-10-06 10:56] LABS: Anion Gap 11 (12-20); Blood Urea Nitrogen 19 mg/dL (9-16); C Reactive Protein 3.78 mg/dL (< or = 0.50); Calcium 8.3 mg/dL (8.4-10.2); Carbon Dioxide 25 mmol/L (22-29); Chloride 114 mmol/L (96-108); Creatinine Clr Calc Pharmacy 74.6; Estimated Glomerular Filt Rate > 60; Glucose Random 113 mg/dL (60-115); Potassium 4.5 mmol/L (3.3-5.1); Sodium 145 mmol/L (135-145)
[2021-10-06 11:09] LABS: Lactate Dehydrogenase 649 U/L (122-220)
[2021-10-06 11:14] LABS: Ferritin 437 ng/mL (10-250)
[2021-10-06] MEDS: dexAMETHasone sod phosphate 4 MG/ML VIAL 6 MG IVPUSH (11:15)
[2021-10-06 11:32] LABS: Glucose, Whole Blood 120 mg/dL (60-115)
--- NOTE | 2021-10-06 14:22 | P.PNIM_ITS ---
Subjective Subjective Date of Service: 10/06/21 Interval History: seen and examined this morning follow up for hypoxia patient not responding to verbal stimuli unable to obtain ROS Review of Systems Review of Systems: Yes Unobtainable due to mental condition and Unobtainable due to mental status Physical Exam Verdana 4l Vital Signs: Verdana 4d Verdana 4d Vital Signs: Verdana 4d Verdana 4Bd Last Vital Signs Verdana 4d Direct Mail Coordinator New 4d Direct Mail Coordinator New 4d Temp 98.7 F 10/06/21 11:24 Direct Mail Coordinator New 4d Pulse 73 10/06/21 11:41 Direct Mail Coordinator New 4d Resp 20 10/06/21 11:41 BP 127/56 L 10/06/21 11:24 Pulse Ox 92 10/06/21 11:24 Oxygen Flow Rate 2 10/04/21 18:40 BMI result Body Mass Index 27.4 Const: General: ill appearing and lethargic Orientation/consciousness: lethargic Resp: Effort & Inspection: tachypneic Cardio: Heart sounds: S1 normal heart sound present and S2 normal heart sound present GI: Inspection: No distended Palpation (GI): Soft to palpation Extrem: Other: s/p right BKA Objective Data Active Medications Acetaminophen (Acetaminophen 325 Mg Tablet) 650 mg PO Q6H PRN PRN Reason: Pain, Mild (Pain Scale 1-3) Albuterol/Ipratropium (Albuterol/Iprat 2.5/0.5mg 3 Ml Ampul.Neb) 3 ml INHALE RQ4H PRN PRN Reason: Shortness of Breath/Wheezing Albuterol/Ipratropium (Albuterol/Iprat 2.5/0.5mg 3 Ml Ampul.Neb) 3 ml INHALE RQ4H WHILE AWAKE [facility] Last Admin: 10/06/21 11:38 Dose: 3 ml Documented by: GAMALIEL Artificial Tears (Artificial Tears 15 Ml Drops) 1 drop EYE-BOTH BID [facility] Last Admin: 10/06/21 11:07 Dose: Not Given Documented by: HERON Non-Admin Reason: Patient Refused Aspirin (Aspirin 81 Mg Tab.Chew) 81 mg PO DAILY [facility] Last Admin: 10/06/21 11:07 Dose: Not Given Documented by: HERON Non-Admin Reason: Patient Refused Benztropine Mesylate (Benztropine Mesylate 1 Mg Tablet) 1 mg PO BID [facility] Last Admin: 10/06/21 11:07 Dose: Not Given Documented by: HERON Non-Admin Reason: Patient Refused Bisacodyl (Bisacodyl 10 Mg Supp.Rect) 10 mg [place] Q2D@1000 [facility] Last Admin: 10/05/21 10:19 Dose: 10 mg Documented by: NAURAG Dexamethasone Sodium Phosphate (Dexamethasone Sod Phosphate 4 Mg/Ml Vial) 6 mg IVPUSH DAILY [facility] Last Admin: 10/06/21 11:15 Dose: 6 mg Documented by: HERON Dextrose (Dextrose 50 % 25 Gm/50 Ml Syringe) 25 gm IVPUSH Q15M PRN; Protocol PRN Reason: per Hypoglycemia Standing Ord. Divalproex Sodium (Divalproex Sodium Sprinkles 125 Mg ) 500 mg PO DAILY [facility] Last Admin: 10/06/21 11:08 Dose: Not Given Documented by: HERON Non-Admin Reason: Patient Refused Divalproex Sodium (Divalproex Sodium Sprinkles 125 Mg ) 1,500 mg PO BEDTIME [facility] Last Admin: 10/05/21 21:15 Dose: 1,500 mg Documented by: ASHLEY Docusate Sodium (Docusate Sodium 100 Mg Capsule) 100 mg PO DAILY PRN PRN Reason: Constipation Enoxaparin Sodium (Enoxaparin Sodium 40 Mg/0.4 Ml Syringe) 40 mg SUBCUT Q24H [facility] Last Admin: 10/05/21 21:15 Dose: 40 mg Documented by: ASHLEY Gabapentin (Gabapentin 300 Mg Capsule) 300 mg PO DAILY [facility] Last Admin: 10/06/21 11:08 Dose: Not Given Documented by: HERON Non-Admin Reason: Patient Refused Glucose (Glucose Gel 15 Gm Gel..Gram.) 15 gm PO Q15M PRN; Protocol PRN Reason: per Hypoglycemia Standing Ord. Haloperidol (Haloperidol 5 Mg Tablet) 5 mg PO BID [facility] Last Admin: 10/06/21 11:09 Dose: Not Given Documented by: HERON Non-Admin Reason: Patient Refused Ceftriaxone Sodium 1 gm/ (Sodium Chloride) 50 mls @ 100 mls/hr IV Q24H [facility] Last Infusion: 10/05/21 21:32 Dose: 0 mls/hr Documented by: ASHLEY Azithromycin 500 mg/ Sodium (Chloride) 250 mls @ 125 mls/hr IV Q24H [facility] Last Infusion: 10/06/21 00:00 Dose: 0 mls/hr Documented by: JANELLE Insulin Human Lispro (Insulin Lispro 100 Unit/Ml 3 Ml Vial) 0 unit SUBCUT QIDACHS [facility]; Protocol Last Admin: 10/06/21 12:44 Dose: Not Given Documented by: HUMBERTO Non-Admin Reason: No Insulin Coverage Latanoprost (Latanoprost 0.005 % Ophth Iza 2.5 Ml Drops) 1 drop EYE-BOTH BEDTIME [facility] Last Admin: 10/05/21 21:54 Dose: Not Given Documented by: ASHLEY Non-Admin Reason: Med Not Available Levothyroxine Sodium (Levothyroxine Sodium 88 Mcg Tablet) 88 mcg PO DAILY@0600 [facility] Last Admin: 10/06/21 06:21 Dose: 88 mcg Documented by: JANELLE [place] Carbonate ([place] Carbonate Er 300 Mg Tablet.Er) 300 mg PO BID [facility] Last Admin: 10/06/21 11:08 Dose: Not Given Documented by: HERON Non-Admin Reason: Patient Refused Mirabegron (Mirabegron 25 Mg Tab.Er.24h) 25 mg PO DAILY [facility] Last Admin: 10/06/21 11:08 Dose: Not Given Documented by: HERON Non-Admin Reason: Patient Refused Olanzapine (Olanzapine 10 Mg Tablet) 10 mg PO DAILY [facility] Last Admin: 10/06/21 11:08 Dose: Not Given Documented by: HERON Non-Admin Reason: Patient Refused Olanzapine (Olanzapine 10 Mg Tablet) 20 mg PO BEDTIME [facility] Last Admin: 10/05/21 21:14 Dose: 20 mg Documented by: ASHLEY Omeprazole (Omeprazole 40 Mg Capsule.Dr) 40 mg PO DAILY@0630 [facility] Last Admin: 10/06/21 06:21 Dose: 40 mg Documented by: JANELLE Ondansetron HCl (Ondansetron Hcl 4 Mg/2 Ml Vial) 4 mg IVPUSH Q8H PRN PRN Reason: Nausea and Vomiting Polyethylene Glycol (Polyethylene Glycol 3350 17 Gm Powd.Pack) 17 gm PO DAILY [facility] Last Admin: 10/06/21 11:08 Dose: Not Given Documented by: HERON Non-Admin Reason: NPO Tiotropium [place] (Tiotropium [place] 18 Mcg Cap.W.Dev) 1 puff INHALE RDAILY [facility] Last Admin: 10/06/21 08:11 Dose: 1 puff Documented by: GAMALIEL Labs CBC & Chem 7: 10/06/21 10:31 10/06/21 10:31 Labs: Laboratory Results - last 24 hr 10/05/21 10/05/21 10/06/21 16:08 19:28 06:31 MCV MCH MCHC RDW Plt Count MPV Immature Gran % (Auto) Neut % (Auto) Lymph % (Auto) [place] % (Auto) Eos % (Auto) Baso % (Auto) Lymph # (Auto) [place] # (Auto) Eos # (Auto) Baso # (Auto) Abs Immat Gran (auto) Absolute Neuts (auto) Absolute Nucleated RBC Nucleated RBC % (auto) D-Dimer High Sensitivty Anion Gap 17 Estim Creat Clear Calc 85.3 Estimated GFR > 60 POC Glucose 90 119 H Random Glucose 87 Calcium 8.1 L Ferritin Lactate Dehydrogenase C-Reactive Protein 10/06/21 10/06/21 10/06/21 06:31 06:31 07:37 MCV 98.9 H MCH 28.4 MCHC 28.7 L RDW 13.7 Plt Count 144 L MPV 12.0 Immature Gran % (Auto) Neut % (Auto) Lymph % (Auto) [place] % (Auto) Eos % (Auto) Baso % (Auto) Lymph # (Auto) [place] # (Auto) Eos # (Auto) Baso # (Auto) Abs Immat Gran (auto) Absolute Neuts (auto) Absolute Nucleated RBC 0.020 H Nucleated RBC % (auto) 0.2 D-Dimer High Sensitivty Anion Gap Estim Creat Clear Calc Estimated GFR POC Glucose 122 H Random Glucose Calcium Ferritin Lactate Dehydrogenase 603 H C-Reactive Protein 10/06/21 10/06/21 10/06/21 10:31 10:31 10:31 MCV 94.8 MCH 28.9 MCHC 30.5 L RDW 14.0 Plt Count 207 D MPV 10.7 Immature Gran % (Auto) 1.0 H Neut % (Auto) 86.5 H Lymph % (Auto) 8.1 L [place] % (Auto) 4.3 Eos % (Auto) 0.0 Baso % (Auto) 0.1 Lymph # (Auto) 0.6 L [place] # (Auto) 0.3 Eos # (Auto) 0.0 Baso # (Auto) 0.0 Abs Immat Gran (auto) 0.08 H Absolute Neuts (auto) 6.6 Absolute Nucleated RBC 0.020 H Nucleated RBC % (auto) 0.3 H D-Dimer High Sensitivty 554 Anion Gap 11 L Estim Creat Clear Calc 74.6 Estimated GFR > 60 POC Glucose Random Glucose 113 Calcium 8.3 L Ferritin 437 H Lactate Dehydrogenase 649 H C-Reactive Protein 3.78 H 10/06/21 11:28 MCV MCH MCHC RDW Plt Count MPV Immature Gran % (Auto) Neut % (Auto) Lymph % (Auto) [place] % (Auto) Eos % (Auto) Baso % (Auto) Lymph # (Auto) [place] # (Auto) Eos # (Auto) Baso # (Auto) Abs Immat Gran (auto) Absolute Neuts (auto) Absolute Nucleated RBC Nucleated RBC % (auto) D-Dimer High Sensitivty Anion Gap Estim Creat Clear Calc Estimated GFR POC Glucose 120 H Random Glucose Calcium Ferritin Lactate Dehydrogenase C-Reactive Protein Microbiology Microbiology Results: Microbiology 10/04/21 20:37 Blood Culture - Preliminary Blood - Venous No growth after 24 hours. 10/04/21 19:52 Blood Culture - Preliminary Blood - Venous No growth after 24 hours. Assessment and Plan (1) Acute respiratory failure due to COVID-19: Status: Acute (2) Encephalopathy: Status: Acute Plan This is a 71 yo F with pmx as above who is a [place] resident, unvaccinated against covid who presents to hospital with acute hypoxic resp failure Acute metabolic encephalopathy possibly secondary to covid continue to follow mental status closely consider brain CT if no improvement Acute hypoxic resp failure increasing oxygen demand, on 15L NC secondary to covid 19 PNA, unvaccinated d-dimer somewhat elevated, will obtain CTA given increasing oxygen requirements continue ceftriaxone, azithromycin continue dexamethasone duoneb tx given hx of COPD monitor resp status ID consult pending Viral Sepsis secondary to covid 19 pna will obtain UA follow cultures Hypotension rapid response called 10/05, see event note 2 liter bolus given BP has remained stable Mood continue home mood stabilizers Seizure? continue home medications hypothyroid continue synthroid DVT ppx: lovenox Attending Dr. Lance DNR Quality Stroke Does the patient have a stroke diagnosis?: No VTE Prior VTE?: No VTE Risk Level:: Medical - moderate - high VTE Device Contraindication: Treatment Not Indicated VTE Drug Contraindication: N/A - Med Ordered
[2021-10-06 15:58] LABS: Glucose, Whole Blood 114 mg/dL (60-115)
[2021-10-06 20:00] LABS: Glucose, Whole Blood 94 mg/dL (60-115)
[2021-10-06] MEDS: Azithromycin 500 MG in 0.9 % Sodium Chloride 250 ML 125 MG IV (21:58)
[2021-10-06] MEDS: cefTRIAXone sodium 1 GM in 0.9 % Sodium Chloride 50 ML IV (21:58)
[2021-10-06] MEDS: Enoxaparin Sodium 40 MG/0.4 ML SYRINGE SUBCUT (22:01)
[2021-10-07] VITALS (11 sets, daily range): BP systolic 104–112; BP diastolic 53–68; PULSE 67–88; RESP 16–40; TEMP 36.4–37; O2SAT 77–91
[2021-10-07] MEDS: Omeprazole 40 MG CAPSULE.DR PO (06:17)
[2021-10-07] MEDS: Levothyroxine Sodium 88 MCG TABLET PO (06:17)
[2021-10-07 06:30] LABS: MANUAL DIFF FLAG NO
[2021-10-07 06:46] LABS: Basophils Percent Auto 0.2 % (0-2); Hemoglobin 12.5 g/dl (12.0-16.0); Imm Gran Abs Auto 0.11 X10*3/uL (0.00-0.03); Lymphocytes Absolute Auto 0.8 X10*3/uL (1.2-4.9); Mean Corpuscular HGB Conc 30.5 g/dl (31.0-35.0); Mean Corpuscular Hemoglobin 28.7 pg (27.0-33.0); Monocytes Absolute Auto 0.6 X10*3/uL (0.1-1.2); Monocytes Percent Auto 10.8 % (2-11); NRBC Pct Auto 0.5 /100WBC (0.0-0.2); Neutrophils Absolute Auto 4.1 x10*3/uL (2.0-8.3); Platelet Count 221 X10*3/uL (160-400); Red Blood Count 4.36 X10*6/uL (4.20-5.50); Red Cell Distribution Width 13.8 % (11.0-16.0); White Blood Count 5.6 X10*3/uL (4.8-10.8)
[2021-10-07 07:17] LABS: Glucose, Whole Blood 136 mg/dL (60-115)
[2021-10-07 07:18] LABS: Blood Urea Nitrogen 18 mg/dL (9-16); Calcium 8.5 mg/dL (8.4-10.2); Creatinine Clr Calc Pharmacy 82.7; Estimated Glomerular Filt Rate > 60; Ferritin 633 ng/mL (10-250); Glucose Random 113 mg/dL (60-115)
[2021-10-07 07:42] LABS: Anion Gap 16 (12-20); Carbon Dioxide 21 mmol/L (22-29); Chloride 119 mmol/L (96-108); Potassium 4.6 mmol/L (3.3-5.1); Sodium 151 mmol/L (135-145)
--- NOTE | 2021-10-07 09:38 | MHC.CM.PN ---
Female 71 DX Hypoxia Pt lives at [facility]. DP return to [facility] via BLS. No DC today. Patient continues to require supplemental oxygen at 15L via [facility].
[2021-10-07] MEDS: Dextrose 5 % 1,000 ML 75 ML IVCONT (10:22)
[2021-10-07] MEDS: Mirabegron 25 MG TAB.ER.24H PO (10:25)
[2021-10-07] MEDS: Benztropine Mesylate 1 MG TABLET PO ×2 (10:26→22:02)
[2021-10-07] MEDS: OLANZapine 10 MG TABLET PO (10:26)
[2021-10-07] MEDS: Lithium Carbonate ER 300 MG TABLET.ER PO ×2 (10:26→22:02)
[2021-10-07] MEDS: Gabapentin 300 MG CAPSULE PO (10:26)
[2021-10-07] MEDS: HaloperidoL 5 MG TABLET PO ×2 (10:26→22:02)
[2021-10-07] MEDS: Aspirin 81 MG TAB.CHEW PO (10:26)
[2021-10-07] MEDS: Divalproex Sodium Sprinkles 125 MG CAP.DR.SPR 500 MG PO (10:26)
[2021-10-07] MEDS: dexAMETHasone sod phosphate 4 MG/ML VIAL 6 MG IVPUSH (10:37)
[2021-10-07 10:53] LABS: Glucose, Whole Blood 102 mg/dL (60-115)
[2021-10-07] MEDS: Albuterol/Iprat 2.5/0.5MG 3 ML AMPUL.NEB INHALE ×3 (11:27→20:19)
--- NOTE | 2021-10-07 14:00 | P.PNIM_ITS ---
Subjective Subjective Date of Service: 10/07/21 Interval History: seen and examined this morning more awake this morning somewhat restless talking a little but still confused appearing, unable to obtain reliable ROS Review of Systems Review of Systems: Yes Unobtainable due to mental condition Neurologic Neurologic: Reports confusion Psychiatric Psychiatric: Reports confusion Physical Exam Verdana 4l Vital Signs: Verdana 4d Verdana 4d Vital Signs: Verdana 4d Verdana 4Bd Last Vital Signs Verdana 4d Lunchroom Operator New 4d Lunchroom Operator New 4d Temp 98.5 F 10/07/21 11:49 Lunchroom Operator New 4d Pulse 72 10/07/21 11:49 Lunchroom Operator New 4d Resp 24 H 10/07/21 12:09 BP 111/55 L 10/07/21 11:49 Pulse Ox 89 L 10/07/21 11:49 Oxygen Flow Rate 2 10/04/21 18:40 BMI result Body Mass Index 27.4 Const: Other: restless General: awake, Physically active and confusion Nutritional Appearance: average body habitus Orientation/consciousness: confusion HENMT: Other: dry mucous membranes Resp: Other: breathing appears less labored this morning Auscultation: diminished lung sounds Cardio: Rate: regular rate Rhythm: regular rhythm GI: Palpation (GI): Soft to palpation and nontender Neuro: General: confusion Extrem: Other: s/p right BKA; moving all 4 extremities spontaneously Objective Data Active Medications Acetaminophen (Acetaminophen 325 Mg Tablet) 650 mg PO Q6H PRN PRN Reason: Pain, Mild (Pain Scale 1-3) Albuterol/Ipratropium (Albuterol/Iprat 2.5/0.5mg 3 Ml Ampul.Neb) 3 ml INHALE RQ4H PRN PRN Reason: Shortness of Breath/Wheezing Albuterol/Ipratropium (Albuterol/Iprat 2.5/0.5mg 3 Ml Ampul.Neb) 3 ml INHALE RQ4H WHILE AWAKE [facility] Last Admin: 10/07/21 11:27 Dose: 3 ml Documented by: KATINA Artificial Tears (Artificial Tears 15 Ml Drops) 1 drop EYE-BOTH BID [facility] Last Admin: 10/07/21 10:34 Dose: Not Given Documented by: HUMBERTO Non-Admin Reason: Patient Refused Aspirin (Aspirin 81 Mg Tab.Chew) 81 mg PO DAILY [facility] Last Admin: 10/07/21 10:26 Dose: 81 mg Documented by: HUMBERTO Benztropine Mesylate (Benztropine Mesylate 1 Mg Tablet) 1 mg PO BID [facility] Last Admin: 10/07/21 10:26 Dose: 1 mg Documented by: HUMBERTO Bisacodyl (Bisacodyl 10 Mg Supp.Rect) 10 mg NC Q2D@1000 [facility] Last Admin: 10/07/21 10:34 Dose: Not Given Documented by: HUMBERTO Non-Admin Reason: Patient Refused Dexamethasone Sodium Phosphate (Dexamethasone Sod Phosphate 4 Mg/Ml Vial) 6 mg IVPUSH DAILY [facility] Last Admin: 10/07/21 10:37 Dose: 6 mg Documented by: HUMBERTO Dextrose (Dextrose 50 % 25 Gm/50 Ml Syringe) 25 gm IVPUSH Q15M PRN; Protocol PRN Reason: per Hypoglycemia Standing Ord. Divalproex Sodium (Divalproex Sodium Sprinkles 125 Mg Spr) 500 mg PO DAILY [facility] Last Admin: 10/07/21 10:26 Dose: 500 mg Documented by: HUMBERTO Divalproex Sodium (Divalproex Sodium Sprinkles 125 Mg Spr) 1,500 mg PO BEDTIME [facility] Last Admin: 10/06/21 20:02 Dose: Not Given Documented by: MIRNA Non-Admin Reason: NPO Docusate Sodium (Docusate Sodium 100 Mg Capsule) 100 mg PO DAILY PRN PRN Reason: Constipation Enoxaparin Sodium (Enoxaparin Sodium 40 Mg/0.4 Ml Syringe) 40 mg SUBCUT Q24H [facility] Last Admin: 10/06/21 22:01 Dose: 40 mg Documented by: MIRNA Gabapentin (Gabapentin 300 Mg Capsule) 300 mg PO DAILY [facility] Last Admin: 10/07/21 10:26 Dose: 300 mg Documented by: HUMBERTO Glucose (Glucose Gel 15 Gm Gel..Gram.) 15 gm PO Q15M PRN; Protocol PRN Reason: per Hypoglycemia Standing Ord. Haloperidol (Haloperidol 5 Mg Tablet) 5 mg PO BID [facility] Last Admin: 10/07/21 10:26 Dose: 5 mg Documented by: HUMBERTO Ceftriaxone Sodium 1 gm/ (Sodium Chloride) 50 mls @ 100 mls/hr IV Q24H [facility] Last Infusion: 10/06/21 22:39 Dose: 0 mls/hr Documented by: MIRNA Azithromycin 500 mg/ Sodium (Chloride) 250 mls @ 125 mls/hr IV Q24H [facility] Last Infusion: 10/07/21 00:55 Dose: 0 mls/hr Documented by: KAN Dextrose (D5w) 1,000 mls @ 75 mls/hr IVCONT .[id number] [facility] Last Admin: 10/07/21 10:22 Dose: 75 mls/hr Documented by: HUMBERTO Insulin Human Lispro (Insulin Lispro 100 Unit/Ml 3 Ml Vial) 0 unit SUBCUT QIDACHS [facility]; Protocol Last Admin: 10/07/21 11:04 Dose: Not Given Documented by: HUMBERTO Non-Admin Reason: No Insulin Coverage Latanoprost (Latanoprost 0.005 % Ophth Iza 2.5 Ml Drops) 1 drop EYE-BOTH BEDTIME [facility] Last Admin: 10/06/21 20:19 Dose: Not Given Documented by: MIRNA Non-Admin Reason: Patient Refused Levothyroxine Sodium (Levothyroxine Sodium 88 Mcg Tablet) 88 mcg PO DAILY@0600 [facility] Last Admin: 10/07/21 06:17 Dose: 88 mcg Documented by: KAN [place] Carbonate ([place] Carbonate Er 300 Mg Tablet.Er) 300 mg PO BID [facility] Last Admin: 10/07/21 10:26 Dose: 300 mg Documented by: HUMBERTO Mirabegron (Mirabegron 25 Mg Tab.Er.24h) 25 mg PO DAILY [facility] Last Admin: 10/07/21 10:25 Dose: 25 mg Documented by: HUMBERTO Olanzapine (Olanzapine 10 Mg Tablet) 10 mg PO DAILY [facility] Last Admin: 10/07/21 10:26 Dose: 10 mg Documented by: HUMBERTO Olanzapine (Olanzapine 10 Mg Tablet) 20 mg PO BEDTIME [facility] Last Admin: 10/06/21 20:20 Dose: Not Given Documented by: MIRNA Non-Admin Reason: NPO Omeprazole (Omeprazole 40 Mg Capsule.Dr) 40 mg PO DAILY@0630 [facility] Last Admin: 10/07/21 06:17 Dose: 40 mg Documented by: KAN Ondansetron HCl (Ondansetron Hcl 4 Mg/2 Ml Vial) 4 mg IVPUSH Q8H PRN PRN Reason: Nausea and Vomiting Polyethylene Glycol (Polyethylene Glycol 3350 17 Gm Powd.Pack) 17 gm PO DAILY [facility] Last Admin: 10/07/21 10:34 Dose: Not Given Documented by: HUMBERTO Non-Admin Reason: Patient Refused Tiotropium [place] (Tiotropium [place] 18 Mcg Cap.W.Dev) 1 puff INHALE RDAILY [facility] Last Admin: 10/07/21 08:05 Dose: Not Given Documented by: KATINA Non-Admin Reason: Patient Refused Labs CBC & Chem 7: 10/07/21 05:56 10/07/21 05:56 Labs: Laboratory Results - last 24 hr 10/06/21 10/06/21 10/07/21 15:55 19:56 05:56 MCV 94.0 MCH 28.7 MCHC 30.5 L RDW 13.8 Plt Count 221 MPV 11.0 Immature Gran % (Auto) 2.0 H Neut % (Auto) 73.0 Lymph % (Auto) 14.0 L [place] % (Auto) 10.8 Eos % (Auto) 0.0 Baso % (Auto) 0.2 Lymph # (Auto) 0.8 L [place] # (Auto) 0.6 Eos # (Auto) 0.0 Baso # (Auto) 0.0 Abs Immat Gran (auto) 0.11 H Absolute Neuts (auto) 4.1 Absolute Nucleated RBC 0.030 H Nucleated RBC % (auto) 0.5 H Anion Gap Estim Creat Clear Calc Estimated GFR POC Glucose 114 94 Random Glucose Calcium Ferritin 10/07/21 10/07/21 10/07/21 05:56 07:12 10:49 MCV MCH MCHC RDW Plt Count MPV Immature Gran % (Auto) Neut % (Auto) Lymph % (Auto) [place] % (Auto) Eos % (Auto) Baso % (Auto) Lymph # (Auto) [place] # (Auto) Eos # (Auto) Baso # (Auto) Abs Immat Gran (auto) Absolute Neuts (auto) Absolute Nucleated RBC Nucleated RBC % (auto) Anion Gap 16 Estim Creat Clear Calc 82.7 Estimated GFR > 60 POC Glucose 136 H 102 Random Glucose 113 Calcium 8.5 Ferritin 633 H Microbiology Microbiology Results: Microbiology 10/04/21 20:37 Blood Culture - Preliminary Blood - Venous No growth after 48 hours. 10/04/21 19:52 Blood Culture - Preliminary Blood - Venous No growth after 48 hours. Assessment and Plan (1) Sepsis: Status: Acute (2) Encephalopathy: Status: Acute (3) Acute respiratory failure due to COVID-19: Status: Acute Plan This is a 71 yo F with pmx as above who is a [place] resident, unvaccinated against covid who presents to hospital with acute hypoxic resp failure Acute metabolic encephalopathy likely secondary to covid seems more alert this morning but will still obtain brain CT Acute hypoxic resp failure secondary to covid 19 PNA (unvaccinated) and possible bacterial pneumonia increasing oxygen demand, borderline need for high flow d-dimer somewhat elevated, will obtain CTA given increasing oxygen requirements, consent obtained from continue ceftriaxone, azithromycin continue dexamethasone duoneb tx given hx of COPD monitor resp status ID consult pending Viral Sepsis secondary to covid 19 pna UA pending Blood cultures negative x 48 hours Hypotension rapid response called 10/05, see event note 2 liter bolus given, BP has remained stable Mood continue home mood stabilizers Seizure? continue home medications hypothyroid continue synthroid DVT ppx: lovenox Attending Dr. Lance HCP/guardian - Alfredo. severe illness discussed with . he understand and would like to continue code status as DNR but intubate for now. DNR. Quality Stroke Does the patient have a stroke diagnosis?: No VTE Prior VTE?: No VTE Risk Level:: Medical - moderate - high VTE Device Contraindication: Treatment Not Indicated VTE Drug Contraindication: N/A - Med Ordered
[2021-10-07 16:18] LABS: Anion Gap 11 (12-20); Blood Urea Nitrogen 18 mg/dL (9-16); Calcium 8.5 mg/dL (8.4-10.2); Carbon Dioxide 25 mmol/L (22-29); Chloride 119 mmol/L (96-108); Creatinine Clr Calc Pharmacy 85.3; Estimated Glomerular Filt Rate > 60; Glucose Random 131 mg/dL (60-115); Potassium 4.4 mmol/L (3.3-5.1); Sodium 151 mmol/L (135-145)
[2021-10-07 16:59] LABS: Glucose, Whole Blood 124 mg/dL (60-115)
[2021-10-07] MEDS: Azithromycin 500 MG in 0.9 % Sodium Chloride 250 ML 125 MG IV (22:02)
[2021-10-07] MEDS: OLANZapine 10 MG TABLET 20 MG PO (22:02)
[2021-10-07] MEDS: Divalproex Sodium Sprinkles 125 MG CAP.DR.SPR 1500 MG PO (22:02)
[2021-10-07] MEDS: Enoxaparin Sodium 40 MG/0.4 ML SYRINGE SUBCUT (22:15)
[2021-10-08] VITALS (17 sets, daily range): BP systolic 97–146; BP diastolic 51–82; PULSE 58–110; RESP 20–44; TEMP 36.5–38.5; O2SAT 82–93
[2021-10-08] MEDS: Dextrose 5 % 1,000 ML 100 ML IVCONT ×2 (01:05→14:36)
[2021-10-08] MEDS: cefTRIAXone sodium 1 GM in 0.9 % Sodium Chloride 50 ML IV ×2 (01:05→23:53)
[2021-10-08] MEDS: Omeprazole 40 MG CAPSULE.DR PO (06:02)
[2021-10-08] MEDS: Levothyroxine Sodium 88 MCG TABLET PO (06:02)
[2021-10-08 07:15] LABS: MANUAL DIFF FLAG NO
[2021-10-08 07:23] LABS: Basophils Percent Auto 0.1 % (0-2); Hematocrit 42.9 % (37.0-47.0); Hemoglobin 12.6 g/dl (12.0-16.0); Imm Gran Abs Auto 0.13 X10*3/uL (0.00-0.03); Imm Gran Pct Auto 1.7 % (0.0-0.4); Lymphocytes Absolute Auto 1.3 X10*3/uL (1.2-4.9); Lymphocytes Percent Auto 16.7 % (20-40); Mean Corpuscular HGB Conc 29.4 g/dl (31.0-35.0); Mean Corpuscular Hemoglobin 28.2 pg (27.0-33.0); Mean Platelet Volume 10.2 fL (9.4-12.3); Monocytes Absolute Auto 0.3 X10*3/uL (0.1-1.2); Monocytes Percent Auto 3.4 % (2-11); NRBC Pct Auto 0.4 /100WBC (0.0-0.2); Neutrophils Absolute Auto 6.1 x10*3/uL (2.0-8.3); Neutrophils Percent Auto 78.1 % (45-73); Platelet Count 309 X10*3/uL (160-400); Red Blood Count 4.47 X10*6/uL (4.20-5.50); Red Cell Distribution Width 14.1 % (11.0-16.0); White Blood Count 7.9 X10*3/uL (4.8-10.8)
[2021-10-08 07:26] LABS: Glucose, Whole Blood 100 mg/dL (60-115)
[2021-10-08 07:52] LABS: Anion Gap 12 (12-20); Blood Urea Nitrogen 20 mg/dL (9-16); Calcium 8.8 mg/dL (8.4-10.2); Carbon Dioxide 25 mmol/L (22-29); Chloride 116 mmol/L (96-108); Estimated Glomerular Filt Rate > 60; Glucose Random 93 mg/dL (60-115); Potassium 4.2 mmol/L (3.3-5.1); Sodium 149 mmol/L (135-145)
[2021-10-08 08:22] LABS: Ferritin 476 ng/mL (10-250)
[2021-10-08] MEDS: Albuterol/Iprat 2.5/0.5MG 3 ML AMPUL.NEB INHALE ×4 (08:41→19:31)
[2021-10-08 08:59] LABS: ABG Base Excess 1.3 mmol/L; ABG HCO3 23 mmol/L (22-26); ABG pCO2 29 mmHg (32-45); ABG pCO2 TC 30 mmHg (32-45); ABG pO2 46 mmHg (83-108); ABG pO2 TC 47 (83-108)
[2021-10-08] MEDS: Morphine Sulfate 2 MG/ML CARTRIDGE IVPUSH ×4 (09:17→23:48)
--- NOTE | 2021-10-08 09:53 | P.CONCC_ITS ---
History of Present Illness Data of Consult Service Date: 10/08/21 Requesting physician: Dayanara Kay Primary Care Provider: Beronica Melissa MD HPI Reason for consult: Hypoxic respiratory failure HPI: ?Patient with underlying history of schizophrenia who presents from a nursing facility, history of diabetes, COPD, anemia of chronic disease, hypothyroidism, GERD, diabetes among others, presents to us via consult.? The patient was initially admitted on the 04 of October with hypoxic respiratory failure in the setting of COVID 19 positive infection for which she was tested on 09/30.? The patient had been febrile but otherwise hemodynamically stable.? I nitial workup revealed no lab abnormality but did show bilateral patchy airspace disease.? The patient was treated with supportive care and was initially placed on high-flow O2 and subsequently to non-rebreather mask. Patient had been doing well over the last couple of days as she was treated with steroids, Rocephin, Zithromax and breathing treatments.? Today the patient's O2 sat had gone down to the low 90s to the high and mid 80s, the concern was that the patient appears to be having worse work of breathing and may be tiring out, given prior code status the patient is DNR but apparently they did want intubation if this was needed. A blood gas obtained the reveal hypoxia and a low pCO2 but otherwise there is no evidence of respiratory acidosis, if anything appears that the patient's blowing too much CO2. ?Review her x-ray reveals significant bilateral airspace disease with superimposed ARDS features. ROS:? Unable to answer Past Medical History:? As above Past Surgical History: Family history: ?Noncontributory Social History:? Lives at a psych facility, quality of life is poor according to her CODE STATUS: .? DNR and now DNI after conversation with patient's Allergies: NKDA Home Medications: See Med Rec PHYSICAL EXAM: VS: ?Blood pressure 140/71, heart rate 77, respirations 24, O2 sat 90 % on high- flow and non-rebreather mask, temperature 99.6?. ? General:? Sleepy, becomes alert with touch stimuli ? Skin:? Intact, no lesions, edema, erythema, clubbing or cyanosis.? No ulcers. ? HEENT:? Head is normocephalic, atraumatic, dry oral mucosa ? Cardiac:? Clear S1-S2, no murmurs rubs or gallops. ? Pulmonary:? Diffuse rhonchi bilaterally and throughout with minimal expiratory wheezes, no crackles. ? Abdomen:? Protuberant, positive bowel sounds in all 4 quadrants.? Soft, nontender, no rebound or guarding.? Musculoskeletal:? Passive range of motion of all 4 extremities at the major joints reveals no cogwheeling, there is no edema.? No asymmetry of the legs. ? Neurologic:? As above, difficult to assess, no discrete focal deficits. ? Vascular:? 2+ pulses upper and lower extremities distally. ? SIGNIFICANT LABORATORY DATA:? As above REVIEW OF IMAGES: CXR IMPRESSION: Worsening diffuse bilateral airspace disease. EKG REVIEW: ?Sinus rhythm 73 beats per minute.? No ST elevations, no depressions.? QTC 427, no comparison available. ASSESSMENT AND PLAN: 1. Acute hypoxic respiratory failure due to COVID infection 2. COVID-19 pneumonia 3. COVID related ARDS 4. Hypernatremia due to volume depletion 5. Acute kidney injury with BUN to creatinine ratio of 31 likely due to insensible losses and poor p.o. intake 6. Superimposed COPD exacerbation due to the above 7. History of diabetes mellitus 8. History of schizophrenia The patient appears to have had a significant decline, her x-ray is showing worsening of the bibasilar and diffuse infiltrates along with ARDS pattern, the patient is breathing too fast, I recommend using opioids in the form of either fentanyl, Dilaudid or morphine as needed for respiratory distress helping as low her breathing down hopefully increasing her oxygenation and tidal volumes.? Continue with antibiotics, steroids and nebulizers. A lengthy discussion took place between the patient's Kd over the phone to discuss goals of care, even though initially he thought that the patient was not significantly ill, he is aware of these now and states that he does not want her to suffer as she has had a lot of these over the years, rather if she was to worsen; he would like her to be comfortable.? At this point the patient is switched to DNR, DNI and the above-mentioned goals of care and recommendations were discussed with the hospitalist physician assistant office manager Dayanara Kay Thank you for allowing us to participate in the care of this patient Critical care time used for critical evaluation of this patient, diagnosis, treatment and coordination of care, review her records and documentation TOTAL CRITICAL CARE TIME 90 MIN . Patient's care was discussed in detail with Dr. East.? He is aware of all the above as well as the plan of care for this patient. [facility] Past Medical History Medical History (Updated 10/06/21 @ 17:27 by KELSEY Oconnor) COPD (chronic obstructive pulmonary disease) Diabetes Schizophrenia Social History Social History service: No Current occupational status: [employer] Allergies Allergy/AdvReac Type Severity Reaction Status Date / Time No Known Allergies Allergy Verified 02/03/21 15:27 Active Medications: Current Medications Acetaminophen (Acetaminophen 325 Mg Tablet) 650 mg PO Q6H PRN PRN Reason: Pain, Mild (Pain Scale 1-3) Albuterol/Ipratropium (Albuterol/Iprat 2.5/0.5mg 3 Ml Ampul.Neb) 3 ml INHALE RQ4H PRN PRN Reason: Shortness of Breath/Wheezing Albuterol/Ipratropium (Albuterol/Iprat 2.5/0.5mg 3 Ml Ampul.Neb) 3 ml INHALE RQ4H WHILE AWAKE COUNTS [facility]CLUDE 234 BEDS AT [facility] Last Admin: 10/08/21 08:41 Dose: 3 ml Documented by: Artificial Tears (Artificial Tears 15 Ml Drops) 1 drop EYE-BOTH BID COUNTS [facility]CLUDE 234 BEDS AT [facility] Last Admin: 10/07/21 22:03 Dose: Not Given Documented by: Aspirin (Aspirin 81 Mg Tab.Chew) 81 mg PO DAILY [facility]S INCLUDE 234 BEDS AT [facility] Last Admin: 10/07/21 10:26 Dose: 81 mg Documented by: Benztropine Mesylate (Benztropine Mesylate 1 Mg Tablet) 1 mg PO BID [facility]S INCLUDE 234 BEDS AT [facility] Last Admin: 10/07/21 22:02 Dose: 1 mg Documented by: Bisacodyl (Bisacodyl 10 Mg Supp.Rect) 10 mg [place] Q2D@1000 [facility]S [facility]CLUDE 234 BEDS AT [facility] Last Admin: 10/07/21 10:34 Dose: Not Given Documented by: Dexamethasone Sodium Phosphate (Dexamethasone Sod Phosphate 4 Mg/Ml Vial) 6 mg IVPUSH DAILY [facility]S [facility]CLUDE 234 BEDS AT [facility] Last Admin: 10/07/21 10:37 Dose: 6 mg Documented by: Dextrose (Dextrose 50 % 25 Gm/50 Ml Syringe) 25 gm IVPUSH Q15M PRN; Protocol PRN Reason: per Hypoglycemia Standing Ord. Divalproex Sodium (Divalproex Sodium Sprinkles 125 Mg ) 500 mg PO DAILY [facility]S [facility]CLUDE 234 BEDS AT [facility] Last Admin: 10/07/21 10:26 Dose: 500 mg Documented by: Divalproex Sodium (Divalproex Sodium Sprinkles 125 Mg ) 1,500 mg PO BEDTIME [facility]S INCLUDE 234 BEDS AT [facility] Last Admin: 10/07/21 22:02 Dose: 1,500 mg Documented by: Docusate Sodium (Docusate Sodium 100 Mg Capsule) 100 mg PO DAILY PRN PRN Reason: Constipation Enoxaparin Sodium (Enoxaparin Sodium 40 Mg/0.4 Ml Syringe) 40 mg SUBCUT Q24H [facility]S [facility]CLUDE 234 BEDS AT [facility] Last Admin: 10/07/21 22:15 Dose: 40 mg Documented by: Gabapentin (Gabapentin 300 Mg Capsule) 300 mg PO DAILY [facility]CLUDE 234 BEDS [facility] Last Admin: 10/07/21 10:26 Dose: 300 mg Documented by: Glucose (Glucose Gel 15 Gm Gel..Gram.) 15 gm PO Q15M PRN; Protocol PRN Reason: per Hypoglycemia Standing Ord. Haloperidol (Haloperidol 5 Mg Tablet) 5 mg PO BID [facility]S [facility]CLUDE 234 BEDS AT [facility] Last Admin: 10/07/21 22:02 Dose: 5 mg Documented by: Ceftriaxone Sodium 1 gm/ (Sodium Chloride) 50 mls @ 100 mls/hr IV Q24H [facility]S INCLUDE 234 BEDS AT [facility] Last Infusion: 10/08/21 01:56 Dose: Infused Documented by: Azithromycin 500 mg/ Sodium (Chloride) 250 mls @ 125 mls/hr IV Q24H [facility]S INCLUDE 234 BEDS AT [facility] Last Infusion: 10/08/21 01:55 Dose: Infused Documented by: Dextrose (D5w) 1,000 mls @ 100 mls/hr IVCONT .Q10H [facility]S [facility]CLUDE 234 BEDS AT [facility] Last Admin: 10/08/21 01:05 Dose: 100 mls/hr Documented by: Insulin Human Lispro (Insulin Lispro 100 Unit/Ml 3 Ml Vial) 0 unit SUBCUT QIDACHS [facility]S [facility]CLUDE 234 BEDS AT [facility]; Protocol Last Admin: 10/08/21 08:17 Dose: Not Given Documented by: Latanoprost (Latanoprost 0.005 % Ophth Iza 2.5 Ml Drops) 1 drop EYE-BOTH BEDTIME COUNTS INCLUDE 234 BEDS AT [facility] Last Admin: 10/07/21 22:03 Dose: Not Given Documented by: Levothyroxine Sodium (Levothyroxine Sodium 88 Mcg Tablet) 88 mcg PO DAILY@0600 COUNTS INCLUDE 234 BEDS AT [facility] Last Admin: 10/08/21 06:02 Dose: 88 mcg Documented by: [place] Carbonate ([place] Carbonate Er 300 Mg Tablet.Er) 300 mg PO BID [facility]S INCLUDE 234 BEDS AT [facility] Last Admin: 10/07/21 22:02 Dose: 300 mg Documented by: Mirabegron (Mirabegron 25 Mg Tab.Er.24h) 25 mg PO DAILY [facility]S INCLUDE 234 BEDS AT [facility] Last Admin: 10/07/21 10:25 Dose: 25 mg Documented by: Olanzapine (Olanzapine 10 Mg Tablet) 10 mg PO DAILY [facility]S INCLUDE 234 BEDS AT [facility] Last Admin: 10/07/21 10:26 Dose: 10 mg Documented by: Olanzapine (Olanzapine 10 Mg Tablet) 20 mg PO BEDTIME [facility]S INCLUDE 234 BEDS AT [facility] Last Admin: 10/07/21 22:02 Dose: 20 mg Documented by: Omeprazole (Omeprazole 40 Mg Capsule.Dr) 40 mg PO DAILY@0630 COUNTS INCLUDE 234 BEDS AT [facility] Last Admin: 10/08/21 06:02 Dose: 40 mg Documented by: Ondansetron HCl (Ondansetron Hcl 4 Mg/2 Ml Vial) 4 mg IVPUSH Q8H PRN PRN Reason: Nausea and Vomiting Polyethylene Glycol (Polyethylene Glycol 3350 17 Gm Powd.Pack) 17 gm PO DAILY [facility]S INCLUDE 234 BEDS AT [facility] Last Admin: 10/07/21 10:34 Dose: Not Given Documented by: Tiotropium [place] (Tiotropium [place] 18 Mcg Cap.W.Dev) 1 puff INHALE RDAILY COUNTS INCLUDE 234 BEDS AT [facility] Last Admin: 10/08/21 08:43 Dose: Not Given Documented by: Home Medications Medication Instructions Recorded Confirmed Last Taken Type aspirin 81 mg 81 mg PO DAILY 02/03/21 10/04/21 10/03/21 History chewable tablet benztropine 1 mg 1 mg PO BID 02/03/21 10/04/21 10/03/21 History tablet divalproex 125 mg 1,500 mg PO 02/03/21 10/04/21 10/03/21 History capsule,delayed BEDTIME release sprinkle estradiol 2 g VAGINAL 02/03/21 10/04/21 10/03/21 History MOWEFR@2100 haloperidol 5 mg 5 mg PO BID 02/03/21 10/04/21 10/03/21 History tablet mirabegron 25 mg 25 mg PO DAILY 02/03/21 10/04/21 10/03/21 History tablet,extended release 24 hr (Myrbetriq) olanzapine 10 mg 10 mg PO DAILY 02/03/21 10/04/21 10/03/21 History tablet umeclidinium 62.5 1 inh INHALATION 02/03/21 10/04/21 10/03/21 History mcg/actuation DAILY blister powder for inhalation (Incruse Ellipta) bisacodyl 10 mg 10 mg [place] 10/04/21 10/04/21 10/01/21 History rectal Q2D@1000 suppository divalproex 125 mg 500 mg PO DAILY 10/04/21 10/04/21 10/03/21 History capsule,delayed release sprinkle (Depakote Sprinkles) gabapentin 300 mg 300 mg PO DAILY 10/04/21 10/04/21 10/03/21 History capsule latanoprost 0.005 1 drp OPHTHALMIC 10/04/21 10/04/21 10/03/21 History % eye drops (EYE) BEDTIME levothyroxine 88 88 mcg PO 10/04/21 10/04/21 10/04/21 History mcg tablet DAILY@0600 lithium carbonate 300 mg PO BID 10/04/21 10/04/21 10/03/21 History 300 mg tablet,extended release olanzapine 20 mg 20 mg PO BEDTIME 10/04/21 10/04/21 10/03/21 History tablet omeprazole 40 mg 40 mg PO 10/04/21 10/04/21 10/04/21 History capsule,delayed DAILY@0630 release polyethylene 17 g PO DAILY 10/04/21 10/04/21 10/03/21 History glycol 3350 17 gram/dose oral powder (Miralax) polyvinyl alcohol 1 drp OPHTHALMIC 10/04/21 10/04/21 10/04/21 History 1.4 % eye drops (EYE) BID (Artificial Tears (polyvinyl alcohol)) Physical Exam Verdana 4l Vital Signs: Verdana 4d Verdana 4d Vital Signs: Verdana 4d Verdana 4Bd Last Vital Signs Verdana 4d Solution Architect New 4d Solution Architect New 4d Temp 99.6 F 10/08/21 07:56 Solution Architect New 4d Pulse 77 10/08/21 07:56 Solution Architect New 4d Resp 24 H 10/08/21 08:42 BP 140/71 H 10/08/21 07:56 Pulse Ox 93 10/08/21 07:56 Oxygen Flow Rate 2 10/04/21 18:40 BMI result Body Mass Index 27.4 Results Labs CBC & Chem 7: 10/08/21 06:42 10/08/21 06:42 Labs: Short CBC 10/08/21 Range/Units 06:42 WBC 7.9 (4.8-10.8) X10*3/uL Hgb 12.6 (12.0-16.0) g/dl Hct 42.9 (37.0-47.0) % Plt Count 309 D (160-400) X10*3/uL BMP 10/07/21 10/08/21 15:37 06:42 Sodium 151 H 149 H Potassium 4.4 4.2 Chloride 119 H 116 H Carbon Dioxide 25 25 BUN 18 H 20 H Creatinine 0.63 0.64 Calcium 8.5 8.8 Microbiology Microbiology Results: Microbiology 10/04/21 20:37 Blood - Venous Blood Culture - Preliminary No growth after 48 hours. 10/04/21 19:52 Blood - Venous Blood Culture - Preliminary No growth after 48 hours.
--- NOTE | 2021-10-08 11:01 | P.PNIM_ITS ---
Subjective Subjective Date of Service: 10/08/21 Interval History: seen and examined this morning follow up for respiratory failure increasing oxygen requirements overnight, increased work of breathing Review of Systems Review of Systems: Yes Unobtainable due to mental status Physical Exam Verdana 4l Vital Signs: Verdana 4d Verdana 4d Vital Signs: Verdana 4d Verdana 4Bd Last Vital Signs Verdana 4d Metal Dresser New 4d Metal Dresser New 4d Temp 99.6 F 10/08/21 07:56 Metal Dresser New 4d Pulse 77 10/08/21 07:56 Metal Dresser New 4d Resp 24 H 10/08/21 08:42 BP 140/71 H 10/08/21 07:56 Pulse Ox 93 10/08/21 07:56 Oxygen Flow Rate 2 10/04/21 18:40 BMI result Body Mass Index 27.4 Const: Other: restless; not responding verbally General: ill appearing and lethargic Nutritional Appearance: thin Orientation/consciousness: lethargic Resp: Effort & Inspection: tachypneic and uses accessory muscles Auscultation: rhonchi Cardio: Heart sounds: S1 normal heart sound present and S2 normal heart sound present GI: Inspection: No distended Palpation (GI): Soft to palpation Extrem: Other: s/p right BKA Objective Data Active Medications Acetaminophen (Acetaminophen 325 Mg Tablet) 650 mg PO Q6H PRN PRN Reason: Pain, Mild (Pain Scale 1-3) Albuterol/Ipratropium (Albuterol/Iprat 2.5/0.5mg 3 Ml Ampul.Neb) 3 ml INHALE RQ4H PRN PRN Reason: Shortness of Breath/Wheezing Albuterol/Ipratropium (Albuterol/Iprat 2.5/0.5mg 3 Ml Ampul.Neb) 3 ml INHALE RQ4H WHILE AWAKE [facility] Last Admin: 10/08/21 08:41 Dose: 3 ml Documented by: VIVIEN Artificial Tears (Artificial Tears 15 Ml Drops) 1 drop EYE-BOTH BID [facility] Last Admin: 10/07/21 22:03 Dose: Not Given Documented by: MAGED Non-Admin Reason: Patient Refused Aspirin (Aspirin 81 Mg Tab.Chew) 81 mg PO DAILY [facility] Last Admin: 10/07/21 10:26 Dose: 81 mg Documented by: HUMBERTO Benztropine Mesylate (Benztropine Mesylate 1 Mg Tablet) 1 mg PO BID [facility] Last Admin: 10/07/21 22:02 Dose: 1 mg Documented by: MAGED Bisacodyl (Bisacodyl 10 Mg Supp.Rect) 10 mg GA Q2D@1000 [facility] Last Admin: 10/07/21 10:34 Dose: Not Given Documented by: HUMBERTO Non-Admin Reason: Patient Refused Dexamethasone Sodium Phosphate (Dexamethasone Sod Phosphate 4 Mg/Ml Vial) 6 mg IVPUSH DAILY [facility] Last Admin: 10/07/21 10:37 Dose: 6 mg Documented by: HUMBERTO Dextrose (Dextrose 50 % 25 Gm/50 Ml Syringe) 25 gm IVPUSH Q15M PRN; Protocol PRN Reason: per Hypoglycemia Standing Ord. Divalproex Sodium (Divalproex Sodium Sprinkles 125 Mg Spr) 500 mg PO DAILY [facility] Last Admin: 10/07/21 10:26 Dose: 500 mg Documented by: HUMBERTO Divalproex Sodium (Divalproex Sodium Sprinkles 125 Mg Spr) 1,500 mg PO BEDTIME [facility] Last Admin: 10/07/21 22:02 Dose: 1,500 mg Documented by: MAGED Docusate Sodium (Docusate Sodium 100 Mg Capsule) 100 mg PO DAILY PRN PRN Reason: Constipation Enoxaparin Sodium (Enoxaparin Sodium 40 Mg/0.4 Ml Syringe) 40 mg SUBCUT Q24H [facility] Last Admin: 10/07/21 22:15 Dose: 40 mg Documented by: MAGED Gabapentin (Gabapentin 300 Mg Capsule) 300 mg PO DAILY [facility] Last Admin: 10/07/21 10:26 Dose: 300 mg Documented by: HUMBERTO Glucose (Glucose Gel 15 Gm Gel..Gram.) 15 gm PO Q15M PRN; Protocol PRN Reason: per Hypoglycemia Standing Ord. Haloperidol (Haloperidol 5 Mg Tablet) 5 mg PO BID [facility] Last Admin: 10/07/21 22:02 Dose: 5 mg Documented by: MAGED Ceftriaxone Sodium 1 gm/ (Sodium Chloride) 50 mls @ 100 mls/hr IV Q24H [facility] Last Infusion: 10/08/21 01:56 Dose: 0 mls/hr Documented by: MAGED Azithromycin 500 mg/ Sodium (Chloride) 250 mls @ 125 mls/hr IV Q24H [facility] Last Infusion: 10/08/21 01:55 Dose: 0 mls/hr Documented by: MAGED Dextrose (D5w) 1,000 mls @ 100 mls/hr IVCONT .Q10H [facility] Last Admin: 10/08/21 01:05 Dose: 100 mls/hr Documented by: MAGED Insulin Human Lispro (Insulin Lispro 100 Unit/Ml 3 Ml Vial) 0 unit SUBCUT QIDACHS [facility]; Protocol Last Admin: 10/08/21 08:17 Dose: Not Given Documented by: FRANCHESKA Non-Admin Reason: No Insulin Coverage Latanoprost (Latanoprost 0.005 % Ophth Iza 2.5 Ml Drops) 1 drop EYE-BOTH BEDTIME [facility] Last Admin: 10/07/21 22:03 Dose: Not Given Documented by: MAGED Non-Admin Reason: Patient Refused Levothyroxine Sodium (Levothyroxine Sodium 88 Mcg Tablet) 88 mcg PO DAILY@0600 [facility] Last Admin: 10/08/21 06:02 Dose: 88 mcg Documented by: MAGED [place] Carbonate ([place] Carbonate Er 300 Mg Tablet.Er) 300 mg PO BID [facility] Last Admin: 10/07/21 22:02 Dose: 300 mg Documented by: MAGED Mirabegron (Mirabegron 25 Mg Tab.Er.24h) 25 mg PO DAILY [facility] Last Admin: 10/07/21 10:25 Dose: 25 mg Documented by: HUMBERTO Morphine Sulfate (Morphine Sulfate 2 Mg/Ml Cartridge) 2 mg IVPUSH Q2H PRN; Protocol PRN Reason: Restlessness Olanzapine (Olanzapine 10 Mg Tablet) 10 mg PO DAILY [facility] Last Admin: 10/07/21 10:26 Dose: 10 mg Documented by: HUMBERTO Olanzapine (Olanzapine 10 Mg Tablet) 20 mg PO BEDTIME [facility] Last Admin: 10/07/21 22:02 Dose: 20 mg Documented by: MAGED Omeprazole (Omeprazole 40 Mg Capsule.Dr) 40 mg PO DAILY@0630 [facility] Last Admin: 10/08/21 06:02 Dose: 40 mg Documented by: MAGED Ondansetron HCl (Ondansetron Hcl 4 Mg/2 Ml Vial) 4 mg IVPUSH Q8H PRN PRN Reason: Nausea and Vomiting Polyethylene Glycol (Polyethylene Glycol 3350 17 Gm Powd.Pack) 17 gm PO DAILY [facility] Last Admin: 10/07/21 10:34 Dose: Not Given Documented by: HUMBERTO Non-Admin Reason: Patient Refused Tiotropium [place] (Tiotropium [place] 18 Mcg Cap.W.Dev) 1 puff INHALE RDAILY [facility] Last Admin: 10/08/21 08:43 Dose: Not Given Documented by: VIVIEN Non-Admin Reason: pt unable Labs CBC & Chem 7: 10/08/21 06:42 10/08/21 06:42 Labs: Laboratory Results - last 24 hr 10/07/21 10/07/21 10/08/21 15:37 16:55 06:42 MCV 96.0 MCH 28.2 MCHC 29.4 L RDW 14.1 Plt Count 309 D MPV 10.2 Immature Gran % (Auto) 1.7 H Neut % (Auto) 78.1 H Lymph % (Auto) 16.7 L [place] % (Auto) 3.4 Eos % (Auto) 0.0 Baso % (Auto) 0.1 Lymph # (Auto) 1.3 [place] # (Auto) 0.3 Eos # (Auto) 0.0 Baso # (Auto) 0.0 Abs Immat Gran (auto) 0.13 H Absolute Neuts (auto) 6.1 Absolute Nucleated RBC 0.030 H Nucleated RBC % (auto) 0.4 H O2 Saturation ABG pH at Pt Temp ABG pH (Temp Correct) ABG pCO2 at Pt Temp ABG pCO2 (Temp Corrct ABG pO2 at Pt Temp ABG pO2 (Temp Correct ABG HCO3 ABG Base Excess (Actual) Anion Gap 11 L Estim Creat Clear Calc 85.3 Estimated GFR > 60 POC Glucose 124 H Random Glucose 131 H Calcium 8.5 Ferritin 10/08/21 10/08/21 10/08/21 06:42 06:42 07:22 MCV MCH MCHC RDW Plt Count MPV Immature Gran % (Auto) Neut % (Auto) Lymph % (Auto) [place] % (Auto) Eos % (Auto) Baso % (Auto) Lymph # (Auto) [place] # (Auto) Eos # (Auto) Baso # (Auto) Abs Immat Gran (auto) Absolute Neuts (auto) Absolute Nucleated RBC Nucleated RBC % (auto) O2 Saturation ABG pH at Pt Temp ABG pH (Temp Correct) ABG pCO2 at Pt Temp ABG pCO2 (Temp Corrct ABG pO2 at Pt Temp ABG pO2 (Temp Correct ABG HCO3 ABG Base Excess (Actual) Anion Gap 12 Estim Creat Clear Calc 84.0 Estimated GFR > 60 POC Glucose 100 Random Glucose 93 Calcium 8.8 Ferritin 476 H 10/08/21 08:52 MCV MCH MCHC RDW Plt Count MPV Immature Gran % (Auto) Neut % (Auto) Lymph % (Auto) [place] % (Auto) Eos % (Auto) Baso % (Auto) Lymph # (Auto) [place] # (Auto) Eos # (Auto) Baso # (Auto) Abs Immat Gran (auto) Absolute Neuts (auto) Absolute Nucleated RBC Nucleated RBC % (auto) O2 Saturation 78.0 ABG pH at Pt Temp 7.50 H ABG pH (Temp Correct) 7.50 H ABG pCO2 at Pt Temp 29 L ABG pCO2 (Temp Corrct 30 L ABG pO2 at Pt Temp 46 L* ABG pO2 (Temp Correct 47 L* ABG HCO3 23 ABG Base Excess (Actual) 1.3 Anion Gap Estim Creat Clear Calc Estimated GFR POC Glucose Random Glucose Calcium Ferritin Assessment and Plan (1) Encephalopathy: Status: Acute (2) Acute respiratory failure due to COVID-19: Status: Acute Plan This is a 71 yo F with pmx as above who is a [place] resident, unvaccinated against covid who presents to hospital with acute hypoxic resp failure Acute metabolic encephalopathy likely secondary to covid Acute hypoxic resp failure secondary to covid 19 PNA (unvaccinated) and possible bacterial pneumonia increasing oxygen demand overnight, increased work of breathing despite high flow CTA ordered, but unable to obtain thus far continue ceftriaxone, azithromycin continue dexamethasone duoneb tx given hx of COPD ID consult pending repeat CXR shows worsening diffuse b/l airspace dz seen by ICU, discussed goals of care with over the phone. pt changed to DNR/DNI and plan for comfort care if she worsens Hypernatremia r/t volume depletion continue IVF follow BMP Viral Sepsis secondary to covid 19 pna Blood cultures negative x 48 hours Hypotension rapid response called 10/05, see event note 2 liter bolus given, BP has remained stable Mood continue home mood stabilizers Seizure? continue home medications hypothyroid continue synthroid DVT ppx: lovenox Attending Dr. King HCP/guardian - Kd updated on worsening respiratory status and poor prognosis as above. changed to DNR/DNI, plan for comfort care if she should worsen. Quality Stroke Does the patient have a stroke diagnosis?: No VTE Prior VTE?: No VTE Risk Level:: Medical - moderate - high VTE Device Contraindication: Treatment Not Indicated VTE Drug Contraindication: N/A - Med Ordered
[2021-10-08 11:13] LABS: Glucose, Whole Blood 71 mg/dL (60-115)
[2021-10-08] MEDS: dexAMETHasone sod phosphate 4 MG/ML VIAL 6 MG IVPUSH (12:53)
[2021-10-08 13:15] LABS: ABG Refer to POC result
[2021-10-08 16:05] LABS: Glucose, Whole Blood 104 mg/dL (60-115)
[2021-10-08 19:49] LABS: Glucose, Whole Blood 128 mg/dL (60-115)
[2021-10-08] MEDS: Acetaminophen Supp 650 MG SUPP.RECT PR (21:54)
[2021-10-08] MEDS: Enoxaparin Sodium 40 MG/0.4 ML SYRINGE SUBCUT (21:58)
[2021-10-08] MEDS: Azithromycin 500 MG in 0.9 % Sodium Chloride 250 ML 125 MG IV (21:59)
--- NOTE | 2021-10-08 22:42 | P.CNID_ITS ---
History of Present Illness Data of Consult Service Date: 10/07/21 Requesting physician: Dayanara Kay Primary Care Provider: MD STEFANI Hein Reason for consult: shortness of breath She presents with shortness of breath COVID test positive on 09/30/2021,seven days ago Review of Systems Verdana 4l Review of Systems: Yes Unobtainable due to mental Verdana 4d condition PMFSH Past Medical History Medical History COPD (chronic obstructive pulmonary disease) Diabetes Schizophrenia Family History Family history: reviewed and not pertinent Social History Social History service: No Current occupational status: disabled [employer] Allergies Allergy/AdvReac Type Severity Reaction Status Date / Time No Known Allergies Allergy Verified 02/03/21 15:27 Active Medications: Current Medications Acetaminophen (Acetaminophen 325 Mg Tablet) 650 mg PO Q6H PRN PRN Reason: Pain, Mild (Pain Scale 1-3) Acetaminophen (Acetaminophen Supp 650 Mg Supp.Rect) 650 mg [place] Q6H PRN PRN Reason: Pain, Mild (Pain Scale 1-3) Last Admin: 10/08/21 21:54 Dose: 650 mg Documented by: Albuterol/Ipratropium (Albuterol/Iprat 2.5/0.5mg 3 Ml Ampul.Neb) 3 ml INHALE RQ4H PRN PRN Reason: Shortness of Breath/Wheezing Albuterol/Ipratropium (Albuterol/Iprat 2.5/0.5mg 3 Ml Ampul.Neb) 3 ml INHALE RQ4H WHILE AWAKE [facility] Last Admin: 10/08/21 19:31 Dose: 3 ml Documented by: Artificial Tears (Artificial Tears 15 Ml Drops) 1 drop EYE-BOTH BID [facility] Last Admin: 10/08/21 20:36 Dose: Not Given Documented by: Aspirin (Aspirin 81 Mg Tab.Chew) 81 mg PO DAILY [facility] Last Admin: 10/08/21 11:53 Dose: Not Given Documented by: Benztropine Mesylate (Benztropine Mesylate 1 Mg Tablet) 1 mg PO BID [facility] Last Admin: 10/08/21 20:36 Dose: Not Given Documented by: Bisacodyl (Bisacodyl 10 Mg Supp.Rect) 10 mg [place] Q2D@1000 [facility] Last Admin: 10/07/21 10:34 Dose: Not Given Documented by: Dexamethasone Sodium Phosphate (Dexamethasone Sod Phosphate 4 Mg/Ml Vial) 6 mg IVPUSH DAILY [facility] Last Admin: 10/08/21 12:53 Dose: 6 mg Documented by: Dextrose (Dextrose 50 % 25 Gm/50 Ml Syringe) 25 gm IVPUSH Q15M PRN; Protocol PRN Reason: per Hypoglycemia Standing Ord. Divalproex Sodium (Divalproex Sodium Sprinkles 125 Mg ) 500 mg PO DAILY [facility] Last Admin: 10/08/21 11:53 Dose: Not Given Documented by: Divalproex Sodium (Divalproex Sodium Sprinkles 125 Mg ) 1,500 mg PO BEDTIME [facility] Last Admin: 10/08/21 20:36 Dose: Not Given Documented by: Docusate Sodium (Docusate Sodium 100 Mg Capsule) 100 mg PO DAILY PRN PRN Reason: Constipation Enoxaparin Sodium (Enoxaparin Sodium 40 Mg/0.4 Ml Syringe) 40 mg SUBCUT Q24H [facility] Last Admin: 10/08/21 21:58 Dose: 40 mg Documented by: Gabapentin (Gabapentin 300 Mg Capsule) 300 mg PO DAILY [facility] Last Admin: 10/08/21 11:53 Dose: Not Given Documented by: Glucose (Glucose Gel 15 Gm Gel..Gram.) 15 gm PO Q15M PRN; Protocol PRN Reason: per Hypoglycemia Standing Ord. Haloperidol (Haloperidol 5 Mg Tablet) 5 mg PO BID [facility] Last Admin: 10/08/21 20:36 Dose: Not Given Documented by: Ceftriaxone Sodium 1 gm/ (Sodium Chloride) 50 mls @ 100 mls/hr IV Q24H [facility] Last Infusion: 10/08/21 01:56 Dose: Infused Documented by: Azithromycin 500 mg/ Sodium (Chloride) 250 mls @ 125 mls/hr IV Q24H [facility] Last Admin: 10/08/21 21:59 Dose: 125 mls/hr Documented by: Dextrose (D5w) 1,000 mls @ 100 mls/hr IVCONT .Q10H [facility] Last Admin: 10/08/21 19:28 Dose: Not Given Documented by: Insulin Human Lispro (Insulin Lispro 100 Unit/Ml 3 Ml Vial) 0 unit SUBCUT QIDA [facility]; Protocol Last Admin: 10/08/21 20:37 Dose: Not Given Documented by: Latanoprost (Latanoprost 0.005 % Ophth Iza 2.5 Ml Drops) 1 drop EYE-BOTH BEDTIME [facility] Last Admin: 10/08/21 20:37 Dose: Not Given Documented by: Levothyroxine Sodium (Levothyroxine Sodium 88 Mcg Tablet) 88 mcg PO DAILY@0600 [facility] Last Admin: 10/08/21 06:02 Dose: 88 mcg Documented by: [place] Carbonate ([place] Carbonate Er 300 Mg Tablet.Er) 300 mg PO BID [facility] Last Admin: 10/08/21 20:37 Dose: Not Given Documented by: Mirabegron (Mirabegron 25 Mg Tab.Er.24h) 25 mg PO DAILY [facility] Last Admin: 10/08/21 11:54 Dose: Not Given Documented by: Morphine Sulfate (Morphine Sulfate 2 Mg/Ml Cartridge) 2 mg IVPUSH Q2H PRN; Protocol PRN Reason: Restlessness Last Admin: 10/08/21 21:54 Dose: 2 mg Documented by: Olanzapine (Olanzapine 10 Mg Tablet) 10 mg PO DAILY [facility] Last Admin: 10/08/21 11:54 Dose: Not Given Documented by: Olanzapine (Olanzapine 10 Mg Tablet) 20 mg PO BEDTIME [facility] Last Admin: 10/08/21 20:37 Dose: Not Given Documented by: Omeprazole (Omeprazole 40 Mg Capsule.Dr) 40 mg PO DAILY@0630 [facility] Last Admin: 10/08/21 06:02 Dose: 40 mg Documented by: Ondansetron HCl (Ondansetron Hcl 4 Mg/2 Ml Vial) 4 mg IVPUSH Q8H PRN PRN Reason: Nausea and Vomiting Polyethylene Glycol (Polyethylene Glycol 3350 17 Gm Powd.Pack) 17 gm PO DAILY [facility] Last Admin: 10/08/21 11:54 Dose: Not Given Documented by: Tiotropium [place] (Tiotropium [place] 18 Mcg Cap.W.Dev) 1 puff INHALE RDAILY [facility] Last Admin: 10/08/21 08:43 Dose: Not Given Documented by: Home Medications Medication Instructions Recorded Confirmed Last Taken Type aspirin 81 mg 81 mg PO DAILY 02/03/21 10/04/21 10/03/21 History chewable tablet benztropine 1 mg 1 mg PO BID 0510/04/21 10/03/21 History tablet divalproex 125 mg 1,500 mg PO 02/03/21 10/04/21 10/03/21 History capsule,delayed BEDTIME release sprinkle estradiol 2 g VAGINAL 02/03/21 10/04/21 10/03/21 History MOWEFR@2100 haloperidol 5 mg 5 mg PO BID 02/03/21 10/04/21 10/03/21 History tablet mirabegron 25 mg 25 mg PO DAILY 02/03/21 10/04/21 10/03/21 History tablet,extended release 24 hr (Myrbetriq) olanzapine 10 mg 10 mg PO DAILY 02/03/21 10/04/21 10/03/21 History tablet umeclidinium 62.5 1 inh INHALATION 02/03/21 10/04/21 10/03/21 History mcg/actuation DAILY blister powder for inhalation (Incruse Ellipta) bisacodyl 10 mg 10 mg [place] 10/04/21 10/04/21 10/01/21 History rectal Q2D@1000 suppository divalproex 125 mg 500 mg PO DAILY 10/04/21 10/04/21 10/03/21 History capsule,delayed release sprinkle (Depakote Sprinkles) gabapentin 300 mg 300 mg PO DAILY 10/04/21 10/04/21 10/03/21 History capsule latanoprost 0.005 1 drp OPHTHALMIC 10/04/21 10/04/21 10/03/21 History % eye drops (EYE) BEDTIME levothyroxine 88 88 mcg PO 10/04/21 10/04/21 10/04/21 History mcg tablet DAILY@0600 lithium carbonate 300 mg PO BID 10/04/21 10/04/21 10/03/21 History 300 mg tablet,extended release olanzapine 20 mg 20 mg PO BEDTIME 10/04/21 10/04/21 10/03/21 History tablet omeprazole 40 mg 40 mg PO 10/04/21 10/04/21 10/04/21 History capsule,delayed DAILY@0630 release polyethylene 17 g PO DAILY 10/04/21 10/04/21 10/03/21 History glycol 3350 17 gram/dose oral powder (Miralax) polyvinyl alcohol 1 drp OPHTHALMIC 10/04/21 10/04/21 10/04/21 History 1.4 % eye drops (EYE) BID (Artificial Tears (polyvinyl alcohol)) Physical Exam Verdana 4l Vital Signs: Verdana 4d Verdana 4d Vital Signs: Verdana 4d Verdana 4Bd Last Vital Signs Verdana 4d [employer] Specialist New 4d Park Services Specialist New 4d Temp 101.3 F H 10/08/21 19:16 Park Services Specialist New 4d Pulse 110 H 10/08/21 19:33 Park Services Specialist New 4d Resp 24 H 10/08/21 21:54 BP 118/57 L 10/08/21 19:16 Pulse Ox 88 L 10/08/21 19:16 Oxygen Flow Rate 2 10/04/21 18:40 BMI result Body Mass Index 27.4 Const: General: cooperative HENMT: Head: Yes normal to inspection Resp: Effort & Inspection: abnormal respiratory pattern Cardio: Rate: regular rate Rhythm: regular rhythm GI: Palpation (GI): Soft to palpation and nontender Extrem: General: Yes normal to inspection Results Labs CBC & Chem 7: 10/09/21 05:46 10/09/21 05:46 Labs: Short CBC 10/04/21 10/08/21 Range/Units 19:53 06:42 WBC 7.9 (4.8-10.8) X10*3/uL Hgb 12.6 (12.0-16.0) g/dl Hct 42.9 (37.0-47.0) % Plt Count 309 D (160-400) X10*3/uL Procalcitonin 0.11 ng/mL BMP 10/08/21 06:42 Sodium 149 H Potassium 4.2 Chloride 116 H Carbon Dioxide 25 BUN 20 H Creatinine 0.64 Calcium 8.8 Microbiology Microbiology Results: Microbiology 10/04/21 20:37 Blood - Venous Blood Culture - Preliminary No growth after 48 hours. 10/04/21 19:52 Blood - Venous Blood Culture - Preliminary No growth after 48 hours. Assessment and Plan (1) Encephalopathy: Status: Acute (2) Sepsis: Status: Acute (3) Acute respiratory failure due to COVID-19: Status: Acute She has respiratory failure,on NRB She has COVID over seven days She has no signs of bacterial infection with no high procalcitonin or lobar infiltrates Plan Would give oxygen Give Dexamethasone per protocol. Also would give baricitinib if desired Stop Ceftriaxone and Zmax
--- NOTE | 2021-10-08 22:42 | W.PM.IDCN ---
History of Present Illness Data of Consult Service Date: 10/07/21 Requesting physician: Dayanara Kay Primary Care Provider: MD STEFANI Hein Reason for consult: shortness of breath She presents with shortness of breath COVID test positive on 09/30/2021,seven days ago Review of Systems Review of Systems: Yes Unobtainable due to mental condition PMFSH Past Medical History Medical History COPD (chronic obstructive pulmonary disease) Diabetes Schizophrenia Family History Family history: reviewed and not pertinent Social History Social History service: No Current occupational status: disabled Meds Allergies Allergy/AdvReac Type Severity Reaction Status Date / Time No Known Allergies Allergy Verified 02/03/21 15:27 Active Medications: Current Medications Acetaminophen (Acetaminophen 325 Mg Tablet) 650 mg PO Q6H PRN PRN Reason: Pain, Mild (Pain Scale 1-3) Acetaminophen (Acetaminophen Supp 650 Mg Supp.Rect) 650 mg RI Q6H PRN PRN Reason: Pain, Mild (Pain Scale 1-3) Last Admin: 10/08/21 21:54 Dose: 650 mg Documented by: Albuterol/Ipratropium (Albuterol/Iprat 2.5/0.5mg 3 Ml Ampul.Neb) 3 ml INHALE RQ4H PRN PRN Reason: Shortness of Breath/Wheezing Albuterol/Ipratropium (Albuterol/Iprat 2.5/0.5mg 3 Ml Ampul.Neb) 3 ml INHALE RQ4H WHILE AWAKE [facility] Last Admin: 10/08/21 19:31 Dose: 3 ml Documented by: Artificial Tears (Artificial Tears 15 Ml Drops) 1 drop EYE-BOTH BID [facility] Last Admin: 10/08/21 20:36 Dose: Not Given Documented by: Aspirin (Aspirin 81 Mg Tab.Chew) 81 mg PO DAILY [facility] Last Admin: 10/08/21 11:53 Dose: Not Given Documented by: Benztropine Mesylate (Benztropine Mesylate 1 Mg Tablet) 1 mg PO BID [facility] Last Admin: 10/08/21 20:36 Dose: Not Given Documented by: Bisacodyl (Bisacodyl 10 Mg Supp.Rect) 10 mg RI Q2D@1000 [facility] Last Admin: 10/07/21 10:34 Dose: Not Given Documented by: Dexamethasone Sodium Phosphate (Dexamethasone Sod Phosphate 4 Mg/Ml Vial) 6 mg IVPUSH DAILY [facility] Last Admin: 10/08/21 12:53 Dose: 6 mg Documented by: Dextrose (Dextrose 50 % 25 Gm/50 Ml Syringe) 25 gm IVPUSH Q15M PRN; Protocol PRN Reason: per Hypoglycemia Standing Ord. Divalproex Sodium (Divalproex Sodium Sprinkles 125 Mg Arnaud.) 500 mg PO DAILY [facility] Last Admin: 10/08/21 11:53 Dose: Not Given Documented by: Divalproex Sodium (Divalproex Sodium Sprinkles 125 Mg ) 1,500 mg PO BEDTIME [facility] Last Admin: 10/08/21 20:36 Dose: Not Given Documented by: Docusate Sodium (Docusate Sodium 100 Mg Capsule) 100 mg PO DAILY PRN PRN Reason: Constipation Enoxaparin Sodium (Enoxaparin Sodium 40 Mg/0.4 Ml Syringe) 40 mg SUBCUT Q24H [facility] Last Admin: 10/08/21 21:58 Dose: 40 mg Documented by: Gabapentin (Gabapentin 300 Mg Capsule) 300 mg PO DAILY [facility] Last Admin: 10/08/21 11:53 Dose: Not Given Documented by: Glucose (Glucose Gel 15 Gm Gel..Gram.) 15 gm PO Q15M PRN; Protocol PRN Reason: per Hypoglycemia Standing Ord. Haloperidol (Haloperidol 5 Mg Tablet) 5 mg PO BID [facility] Last Admin: 10/08/21 20:36 Dose: Not Given Documented by: Ceftriaxone Sodium 1 gm/ (Sodium Chloride) 50 mls @ 100 mls/hr IV Q24H [facility] Last Infusion: 10/08/21 01:56 Dose: Infused Documented by: Azithromycin 500 mg/ Sodium (Chloride) 250 mls @ 125 mls/hr IV Q24H [facility] Last Admin: 10/08/21 21:59 Dose: 125 mls/hr Documented by: Dextrose (D5w) 1,000 mls @ 100 mls/hr IVCONT .Q10H [facility] Last Admin: 10/08/21 19:28 Dose: Not Given Documented by: Insulin Human Lispro (Insulin Lispro 100 Unit/Ml 3 Ml Vial) 0 unit SUBCUT QIDACHS [facility]; Protocol Last Admin: 10/08/21 20:37 Dose: Not Given Documented by: Latanoprost (Latanoprost 0.005 % Ophth Iza 2.5 Ml Drops) 1 drop EYE-BOTH BEDTIME [facility] Last Admin: 10/08/21 20:37 Dose: Not Given Documented by: Levothyroxine Sodium (Levothyroxine Sodium 88 Mcg Tablet) 88 mcg PO DAILY@0600 [facility] Last Admin: 10/08/21 06:02 Dose: 88 mcg Documented by: [place] Carbonate ([place]ra Carbonate Er 300 Mg Tablet.Er) 300 mg PO BID [facility] Last Admin: 10/08/21 20:37 Dose: Not Given Documented by: Mirabegron (Mirabegron 25 Mg Tab.Er.24h) 25 mg PO DAILY [facility] Last Admin: 10/08/21 11:54 Dose: Not Given Documented by: Morphine Sulfate (Morphine Sulfate 2 Mg/Ml Cartridge) 2 mg IVPUSH Q2H PRN; Protocol PRN Reason: Restlessness Last Admin: 10/08/21 21:54 Dose: 2 mg Documented by: Olanzapine (Olanzapine 10 Mg Tablet) 10 mg PO DAILY [facility] Last Admin: 10/08/21 11:54 Dose: Not Given Documented by: Olanzapine (Olanzapine 10 Mg Tablet) 20 mg PO BEDTIME [facility] Last Admin: 10/08/21 20:37 Dose: Not Given Documented by: Omeprazole (Omeprazole 40 Mg Capsule.Dr) 40 mg PO DAILY@0630 [facility] Last Admin: 10/08/21 06:02 Dose: 40 mg Documented by: Ondansetron HCl (Ondansetron Hcl 4 Mg/2 Ml Vial) 4 mg IVPUSH Q8H PRN PRN Reason: Nausea and Vomiting Polyethylene Glycol (Polyethylene Glycol 3350 17 Gm Powd.Pack) 17 gm PO DAILY [facility] Last Admin: 10/08/21 11:54 Dose: Not Given Documented by: Tiotropium [place] (Tiotropium [place] 18 Mcg Cap.W.Dev) 1 puff INHALE RDAILY [facility] Last Admin: 10/08/21 08:43 Dose: Not Given Documented by: Home Medications Medication Instructions Recorded Confirmed Last Taken Type aspirin 81 mg chewable tablet 81 mg PO DAILY 02/03/21 10/04/21 10/03/21 History benztropine 1 mg tablet 1 mg PO BID 02/03/21 10/04/21 10/03/21 History divalproex 125 mg capsule,delayed 1,500 mg PO BEDTIME 02/03/21 10/04/21 10/03/21 History release sprinkle estradiol 2 g VAGINAL MOWEFR@2100 02/03/21 10/04/21 10/03/21 History haloperidol 5 mg tablet 5 mg PO BID 02/03/21 10/04/21 10/03/21 History mirabegron 25 mg tablet,extended 25 mg PO DAILY 02/03/21 10/04/21 10/03/21 History release 24 hr (Myrbetriq) olanzapine 10 mg tablet 10 mg PO DAILY 02/03/21 10/04/21 10/03/21 History umeclidinium 62.5 mcg/actuation 1 inh INHALATION DAILY 02/03/21 10/04/21 10/03/21 History blister powder for inhalation (Incruse Ellipta) bisacodyl 10 mg rectal suppository 10 mg RI Q2D@1000 10/04/21 10/04/21 10/01/21 History divalproex 125 mg capsule,delayed 500 mg PO DAILY 10/04/21 10/04/21 10/03/21 History release sprinkle (Depakote Sprinkles) gabapentin 300 mg capsule 300 mg PO DAILY 10/04/21 10/04/21 10/03/21 History latanoprost 0.005 % eye drops 1 drp OPHTHALMIC (EYE) BEDTIME 10/04/21 10/04/21 10/03/21 History levothyroxine 88 mcg tablet 88 mcg PO DAILY@0600 10/04/21 10/04/21 10/04/21 History lithium carbonate 300 mg 300 mg PO BID 10/04/21 10/04/21 10/03/21 History tablet,extended release olanzapine 20 mg tablet 20 mg PO BEDTIME 10/04/21 10/04/21 10/03/21 History omeprazole 40 mg capsule,delayed 40 mg PO DAILY@0630 10/04/21 10/04/21 10/04/21 History release polyethylene glycol 3350 17 17 g PO DAILY 10/04/21 10/04/21 10/03/21 History gram/dose oral powder (Miralax) polyvinyl alcohol 1.4 % eye drops 1 drp OPHTHALMIC (EYE) BID 10/04/21 10/04/2110/04/22 History (Artificial Tears (polyvinyl alcohol)) Physical Exam Vital Signs: Vital Signs: Last Vital Signs Temp 101.3 F H 10/08/21 19:16 Pulse 110 H 10/08/21 19:33 Resp 24 H 10/08/21 21:54 BP 118/57 L 10/08/21 19:16 Pulse Ox 88 L 10/08/21 19:16 Oxygen Flow Rate 2 10/04/21 18:40 BMI result Body Mass Index 27.4 Const: General: cooperative HENMT: Head: Yes normal to inspection Resp: Effort & Inspection: abnormal respiratory pattern Cardio: Rate: regular rate Rhythm: regular rhythm GI: Palpation (GI): Soft to palpation and nontender Extrem: General: Yes normal to inspection Results Labs CBC & Chem 7: 10/09/21 05:46 10/09/21 05:46 Labs: Short CBC 10/04/21 10/08/21 Range/Units 19:53 06:42 WBC 7.9 (4.8-10.8) X10*3/uL Hgb 12.6 (12.0-16.0) g/dl Hct 42.9 (37.0-47.0) % Plt Count 309 D (160-400) X10*3/uL Procalcitonin 0.11 ng/mL BMP 10/08/21 06:42 Sodium 149 H Potassium 4.2 Chloride 116 H Carbon Dioxide 25 BUN 20 H Creatinine 0.64 Calcium 8.8 Microbiology Microbiology Results: Microbiology 10/04/21 20:37 Blood - Venous Blood Culture - Preliminary No growth after 48 hours. 10/04/21 19:52 Blood - Venous Blood Culture - Preliminary No growth after 48 hours. Assessment and Plan (1) Encephalopathy: Status: Acute (2) Sepsis: Status: Acute (3) Acute respiratory failure due to COVID-19: Status: Acute She has respiratory failure,on NRB She has COVID over seven days She has no signs of bacterial infection with no high procalcitonin or lobar infiltrates Plan Would give oxygen Give Dexamethasone per protocol. Also would give baricitinib if desired Stop Ceftriaxone and Zmax
[2021-10-09] VITALS (12 sets, daily range): BP systolic 100–131; BP diastolic 53–63; PULSE 64–86; RESP 18–30; TEMP 37.2–37.8; O2SAT 82–92
[2021-10-09] MEDS: LORazepam 2 MG/ML VIAL 1 MG IVPUSH (02:10)
[2021-10-09] MEDS: Dextrose 5 % 1,000 ML 100 ML IVCONT (05:13)
[2021-10-09 06:20] LABS: MANUAL DIFF FLAG NO
[2021-10-09 06:33] LABS: Basophils Percent Auto 0.2 % (0-2); Hematocrit 39.2 % (37.0-47.0); Hemoglobin 11.7 g/dl (12.0-16.0); Imm Gran Abs Auto 0.12 X10*3/uL (0.00-0.03); Imm Gran Pct Auto 1.8 % (0.0-0.4); Lymphocytes Absolute Auto 0.7 X10*3/uL (1.2-4.9); Lymphocytes Percent Auto 10.4 % (20-40); Mean Corpuscular HGB Conc 29.8 g/dl (31.0-35.0); Mean Corpuscular Hemoglobin 28.7 pg (27.0-33.0); Mean Corpuscular Volume 96.3 fL (80.0-98.0); Mean Platelet Volume 10.3 fL (9.4-12.3); Monocytes Absolute Auto 0.3 X10*3/uL (0.1-1.2); Monocytes Percent Auto 4.6 % (2-11); NRBC Pct Auto 0.5 /100WBC (0.0-0.2); Neutrophils Absolute Auto 5.4 x10*3/uL (2.0-8.3); Platelet Count 307 X10*3/uL (160-400); Red Blood Count 4.07 X10*6/uL (4.20-5.50); Red Cell Distribution Width 14.2 % (11.0-16.0); White Blood Count 6.5 X10*3/uL (4.8-10.8)
[2021-10-09 07:23] LABS: Anion Gap 13 (12-20); Blood Urea Nitrogen 20 mg/dL (9-16); Calcium 8.5 mg/dL (8.4-10.2); Carbon Dioxide 24 mmol/L (22-29); Chloride 115 mmol/L (96-108); Creatinine Clr Calc Pharmacy 81.4; Estimated Glomerular Filt Rate > 60; Glucose Random 99 mg/dL (60-115); Potassium 4.3 mmol/L (3.3-5.1); Sodium 148 mmol/L (135-145)
[2021-10-09] MEDS: Morphine Sulfate 2 MG/ML CARTRIDGE IVPUSH ×6 (07:35→22:52)
[2021-10-09 08:02] LABS: Glucose, Whole Blood 93 mg/dL (60-115)
[2021-10-09] MEDS: Albuterol/Iprat 2.5/0.5MG 3 ML AMPUL.NEB INHALE ×4 (08:09→19:21)
[2021-10-09 11:15] LABS: Glucose, Whole Blood 101 mg/dL (60-115)
--- NOTE | 2021-10-09 11:18 | HO.PM.IMPN ---
Subjective Subjective Date of Service: 10/09/21 Interval History: seen and examined this morning confused, unable to provide any history Review of Systems Review of Systems: Yes Unobtainable due to mental condition and Unobtainable due to mental status Neurologic Neurologic: Reports confusion Psychiatric Psychiatric: Reports confusion Physical Exam Vital Signs: Vital Signs: Last Vital Signs Temp 99.6 F 10/09/21 07:26 Pulse 78 10/09/21 07:26 Resp 20 10/09/21 08:09 BP 113/53 L 10/09/21 07:26 Pulse Ox 89 L 10/09/21 07:26 Oxygen Flow Rate 2 10/04/21 18:40 BMI result Body Mass Index 27.4 Const: Other: more lethargic today General: confusion, ill appearing and lethargic Nutritional Appearance: average body habitus Orientation/consciousness: confusion and lethargic HENMT: Other: dry mucous membranes Resp: Effort & Inspection: tachypneic and uses accessory muscles Auscultation: rhonchi and diminished lung sounds Cardio: Rate: regular rate Rhythm: regular rhythm Heart sounds: S1 normal heart sound present and S2 normal heart sound present GI: Inspection: No distended Palpation (GI): Soft to palpation and nontender Neuro: General: confusion Extrem: Other: s/p right BKA Objective Data Active Medications Acetaminophen (Acetaminophen 325 Mg Tablet) 650 mg PO Q6H PRN PRN Reason: Pain, Mild (Pain Scale 1-3) Acetaminophen (Acetaminophen Supp 650 Mg Supp.Rect) 650 mg UT Q6H PRN PRN Reason: Pain, Mild (Pain Scale 1-3) Last Admin: 10/08/21 21:54 Dose: 650 mg Documented by: MAGED Albuterol/Ipratropium (Albuterol/Iprat 2.5/0.5mg 3 Ml Ampul.Neb) 3 ml INHALE RQ4H PRN PRN Reason: Shortness of Breath/Wheezing Albuterol/Ipratropium (Albuterol/Iprat 2.5/0.5mg 3 Ml Ampul.Neb) 3 ml INHALE RQ4H WHILE AWAKE [facility] Last Admin: 10/09/21 08:09 Dose: 3 ml Documented by: SILVANA Artificial Tears (Artificial Tears 15 Ml Drops) 1 drop EYE-BOTH BID [facility] Last Admin: 10/09/21 10:10 Dose: Not Given Documented by: FRANCHESKA Non-Admin Reason: Patient Refused Aspirin (Aspirin 81 Mg Tab.Chew) 81 mg PO DAILY [facility] Last Admin: 10/09/21 10:11 Dose: Not Given Documented by: FRANCHESKA Non-Admin Reason: NPO Baricitinib (Baricitinib 2 Mg Tablet) 4 mg PO Q24H [facility] Stop: 10/22/21 11:01 Benztropine Mesylate (Benztropine Mesylate 1 Mg Tablet) 1 mg PO BID [facility] Last Admin: 10/09/21 10:11 Dose: Not Given Documented by: FRANCHESKA Non-Admin Reason: NPO Bisacodyl (Bisacodyl 10 Mg Supp.Rect) 10 mg UT Q2D@1000 [facility] Last Admin: 10/07/21 10:34 Dose: Not Given Documented by: HUMBERTO Non-Admin Reason: Patient Refused Dexamethasone Sodium Phosphate (Dexamethasone Sod Phosphate 4 Mg/Ml Vial) 6 mg IVPUSH DAILY [facility] Last Admin: 10/08/21 12:53 Dose: 6 mg Documented by: Dextrose (Dextrose 50 % 25 Gm/50 Ml Syringe) 25 gm IVPUSH Q15M PRN; Protocol PRN Reason: per Hypoglycemia Standing Ord. Divalproex Sodium (Divalproex Sodium Sprinkles 125 Mg ) 500 mg PO DAILY [facility] Last Admin: 10/09/21 10:11 Dose: Not Given Documented by: FRANCHESKA Non-Admin Reason: NPO Divalproex Sodium (Divalproex Sodium Sprinkles 125 Mg ) 1,500 mg PO BEDTIME [facility] Last Admin: 10/08/21 20:36 Dose: Not Given Documented by: MAGED Non-Admin Reason: NPO Docusate Sodium (Docusate Sodium 100 Mg Capsule) 100 mg PO DAILY PRN PRN Reason: Constipation Enoxaparin Sodium (Enoxaparin Sodium 40 Mg/0.4 Ml Syringe) 40 mg SUBCUT Q24H [facility] Last Admin: 10/08/21 21:58 Dose: 40 mg Documented by: MAGED Gabapentin (Gabapentin 300 Mg Capsule) 300 mg PO DAILY [facility] Last Admin: 10/09/21 10:11 Dose: Not Given Documented by: FRANCHESKA Non-Admin Reason: NPO Glucose (Glucose Gel 15 Gm Gel..Gram.) 15 gm PO Q15M PRN; Protocol PRN Reason: per Hypoglycemia Standing Ord. Haloperidol (Haloperidol 5 Mg Tablet) 5 mg PO BID [facility] Last Admin: 10/09/21 10:11 Dose: Not Given Documented by: FRANCHESKA Non-Admin Reason: NPO Dextrose (D5w) 1,000 mls @ 150 mls/hr IVCONT .Q6H40M [facility] Last Admin: 10/09/21 05:13 Dose: 100 mls/hr Documented by: MAGED Insulin Human Lispro (Insulin Lispro 100 Unit/Ml 3 Ml Vial) 0 unit SUBCUT QIDACHS [facility]; Protocol Last Admin: 10/09/21 07:36 Dose: Not Given Documented by: FRANCHESKA Non-Admin Reason: No Insulin Coverage Latanoprost (Latanoprost 0.005 % Ophth Iza 2.5 Ml Drops) 1 drop EYE-BOTH BEDTIME [facility] Last Admin: 10/08/21 20:37 Dose: Not Given Documented by: MAGED Non-Admin Reason: Patient Refused Levothyroxine Sodium (Levothyroxine Sodium 88 Mcg Tablet) 88 mcg PO DAILY@0600 [facility] Last Admin: 10/09/21 05:08 Dose: Not Given Documented by: MAGED Non-Admin Reason: NPO [place] Carbonate ([place] Carbonate Er 300 Mg Tablet.Er) 300 mg PO BID [facility] Last Admin: 10/09/21 10:11 Dose: Not Given Documented by: FRANCHESKA Non-Admin Reason: NPO Mirabegron (Mirabegron 25 Mg Tab.Er.24h) 25 mg PO DAILY [facility] Last Admin: 10/09/21 10:12 Dose: Not Given Documented by: FRANCHESKA Non-Admin Reason: NPO Morphine Sulfate (Morphine Sulfate 2 Mg/Ml Cartridge) 2 mg IVPUSH Q2H PRN; Protocol PRN Reason: Restlessness Last Admin: 10/09/21 07:35 Dose: 2 mg Documented by: FRANCHESKA Olanzapine (Olanzapine 10 Mg Tablet) 10 mg PO DAILY [facility] Last Admin: 10/09/21 10:12 Dose: Not Given Documented by: FRANCHESKA Non-Admin Reason: NPO Olanzapine (Olanzapine 10 Mg Tablet) 20 mg PO BEDTIME [facility] Last Admin: 10/08/21 20:37 Dose: Not Given Documented by: MAGED Non-Admin Reason: NPO Omeprazole (Omeprazole 40 Mg Capsule.Dr) 40 mg PO DAILY@0630 [facility] Last Admin: 10/09/21 05:08 Dose: Not Given Documented by: MAGED Non-Admin Reason: NPO Ondansetron HCl (Ondansetron Hcl 4 Mg/2 Ml Vial) 4 mg IVPUSH Q8H PRN PRN Reason: Nausea and Vomiting Polyethylene Glycol (Polyethylene Glycol 3350 17 Gm Powd.Pack) 17 gm PO DAILY [facility] Last Admin: 10/09/21 10:12 Dose: Not Given Documented by: FRANCHESKA Non-Admin Reason: NPO Tiotropium [place] (Tiotropium [place] 18 Mcg Cap.W.Dev) 1 puff INHALE RDAILY [facility] Last Admin: 10/09/21 08:09 Dose: Not Given Documented by: SILVANA Non-Admin Reason: pt unable Labs CBC & Chem 7: 10/09/21 05:46 10/09/21 05:46 Labs: Laboratory Results - last 24 hr 10/08/21 10/08/21 10/09/21 16:01 19:45 05:46 MCV 96.3 MCH 28.7 MCHC 29.8 L RDW 14.2 Plt Count 307 MPV 10.3 Immature Gran % (Auto) 1.8 H Neut % (Auto) 83.0 H Lymph % (Auto) 10.4 L [place] % (Auto) 4.6 Eos % (Auto) 0.0 Baso % (Auto) 0.2 Lymph # (Auto) 0.7 L [place] # (Auto) 0.3 Eos # (Auto) 0.0 Baso # (Auto) 0.0 Abs Immat Gran (auto) 0.12 H Absolute Neuts (auto) 5.4 Absolute Nucleated RBC 0.030 H Nucleated RBC % (auto) 0.5 H Anion Gap Estim Creat Clear Calc Estimated GFR POC Glucose 104 128 H Random Glucose Calcium 10/09/21 10/09/21 10/09/21 05:46 07:24 11:10 MCV MCH MCHC RDW Plt Count MPV Immature Gran % (Auto) Neut % (Auto) Lymph % (Auto) [place] % (Auto) Eos % (Auto) Baso % (Auto) Lymph # (Auto) [place] # (Auto) Eos # (Auto) Baso # (Auto) Abs Immat Gran (auto) Absolute Neuts (auto) Absolute Nucleated RBC Nucleated RBC % (auto) Anion Gap 13 Estim Creat Clear Calc 81.4 Estimated GFR > 60 POC Glucose 93 101 Random Glucose 99 Calcium 8.5 Assessment and Plan (1) Encephalopathy: Status: Acute (2) Acute respiratory failure due to COVID-19: Status: Acute Plan This is a 71 yo F with pmx as above who is a [place] resident, unvaccinated against covid who presents to hospital with acute hypoxic resp failure Acute hypoxic resp failure secondary to covid 19 PNA (unvaccinated) still requiring high flow + NRB CTA ordered, but unable to obtain thus far continue dexamethasone duoneb tx given hx of COPD repeat CXR shows worsening diffuse b/l airspace dz seen by ID, rec baricitinib, d/c abx seen by ICU 10/08, discussed goals of care with over the phone. pt changed to DNR/DNI and plan for comfort care if she worsens Acute metabolic encephalopathy likely secondary to covid Hypernatremia r/t volume depletion will increase IVF follow BMP Viral Sepsis secondary to covid 19 pna Blood cultures negative x 48 hours Hypotension rapid response called 10/05, see event note 2 liter bolus given, BP has remained stable Mood continue home mood medications when able to take PO hypothyroid continue synthroid when able to take po nutrition: depending on clinical course, will need NGT or line for nutrition. DVT ppx: lovenox Attending Dr. Nguyen HCP/guardian - [place] updated on worsening respiratory status and poor prognosis as above. changed to DNR/DNI, plan for comfort care if she should worsen. Quality Stroke Does the patient have a stroke diagnosis?: No VTE Prior VTE?: No VTE Risk Level:: Medical - moderate - high VTE Device Contraindication: Treatment Not Indicated VTE Drug Contraindication: N/A - Med Ordered
[2021-10-09] MEDS: dexAMETHasone sod phosphate 4 MG/ML VIAL 6 MG IVPUSH (11:24)
[2021-10-09] MEDS: Dextrose 5 % 1,000 ML 150 ML IVCONT ×2 (15:19→20:56)
[2021-10-09 16:13] LABS: Glucose, Whole Blood 146 mg/dL (60-115)
[2021-10-09] MEDS: bisacodyL 10 MG SUPP.RECT PR (16:40)
[2021-10-09] MEDS: Enoxaparin Sodium 40 MG/0.4 ML SYRINGE SUBCUT (20:45)
[2021-10-09] MEDS: Acetaminophen Supp 650 MG SUPP.RECT PR (20:46)
[2021-10-09] MEDS: Latanoprost 0.005 % Ophth Sol 2.5 ML DROPS 1 DROP EYE-BOTH (20:46)
[2021-10-09 20:48] LABS: Glucose, Whole Blood 183 mg/dL (60-115)
[2021-10-09] MEDS: Insulin Lispro 100 UNIT/ML 3 ML VIAL SUBCUT (20:57)
[2021-10-10] VITALS (19 sets, daily range): BP systolic 97–139; BP diastolic 48–60; PULSE 48–99; RESP 18–28; TEMP 36.2–38.1; O2SAT 78–94; BMI 27.4
[2021-10-10] MEDS: Morphine Sulfate 2 MG/ML CARTRIDGE IVPUSH ×5 (01:48→17:50)
[2021-10-10] MEDS: Dextrose 5 % 1,000 ML 150 ML IVCONT (03:30)
[2021-10-10] MEDS: Acetaminophen Supp 650 MG SUPP.RECT PR (03:42)
--- NOTE | 2021-10-10 04:09 | PC.NURSE ---
10/09/211999 02sat's 80-81% on 50L high flow and 100% NRB. notified.ordered to place pt prone.placed pt prone with lots of difficulty.pt resistent and restless.o2 sat's did come up to 91%.pt continues to be restless in bed.refusing to stay prone.02 sat's dropping during the night to 70's-80's.many attempts to place pt prone .pt continues to be resistent.medicated with morphine 2mg iv q 2hr as ordered for restlessness.at present time pt is repositionned to left side.02 sat's 87-88%.
[2021-10-10 06:17] LABS: MANUAL DIFF FLAG NO
[2021-10-10 06:38] LABS: Basophils Percent Auto 0.2 % (0-2); Hematocrit 35.2 % (37.0-47.0); Hemoglobin 11.1 g/dl (12.0-16.0); Imm Gran Pct Auto 2.1 % (0.0-0.4); Lymphocytes Absolute Auto 0.9 X10*3/uL (1.2-4.9); Lymphocytes Percent Auto 9.5 % (20-40); Mean Corpuscular HGB Conc 31.5 g/dl (31.0-35.0); Mean Corpuscular Hemoglobin 29.7 pg (27.0-33.0); Mean Corpuscular Volume 94.1 fL (80.0-98.0); Mean Platelet Volume 10.7 fL (9.4-12.3); Monocytes Absolute Auto 0.4 X10*3/uL (0.1-1.2); Monocytes Percent Auto 4.3 % (2-11); NRBC Pct Auto 0.4 /100WBC (0.0-0.2); Neutrophils Percent Auto 83.9 % (45-73); Platelet Count 219 X10*3/uL (160-400); Red Blood Count 3.74 X10*6/uL (4.20-5.50); Red Cell Distribution Width 13.7 % (11.0-16.0); White Blood Count 9.5 X10*3/uL (4.8-10.8)
[2021-10-10 06:41] LABS: Anion Gap 11 (12-20); Blood Urea Nitrogen 18 mg/dL (9-16); Calcium 8.5 mg/dL (8.4-10.2); Carbon Dioxide 23 mmol/L (22-29); Chloride 109 mmol/L (96-108); Estimated Glomerular Filt Rate > 60; Glucose Random 123 mg/dL (60-115); Potassium 4.3 mmol/L (3.3-5.1); Sodium 139 mmol/L (135-145)
[2021-10-10] MEDS: Albuterol/Iprat 2.5/0.5MG 3 ML AMPUL.NEB INHALE ×4 (07:45→20:22)
[2021-10-10] MEDS: HaloperidoL 5 MG TABLET PO (08:01)
[2021-10-10 08:05] LABS: Glucose, Whole Blood 110 mg/dL (60-115)
[2021-10-10] MEDS: dexAMETHasone sod phosphate 4 MG/ML VIAL 6 MG IVPUSH (08:09)
[2021-10-10] MEDS: OLANZapine 10 MG TABLET PO (08:09)
--- NOTE | 2021-10-10 09:19 | MHC.CM.PN ---
Female 71 Lives @ [facility]. DP return to [facility] via BLS. Patient is requiring Hi flow and a NRB. SPo2 70s=88%. Not ready for discharge r/t hypoxia.
--- NOTE | 2021-10-10 10:43 | HO.PM.IMPN ---
Subjective Subjective Date of Service: 10/10/21 Review of Systems Seen and examined this morning confused, unable to provide any history Struggling today, agitated and tachypneic despite morphine Physical Exam Vital Signs: Vital Signs: Last Vital Signs Temp 99.1 F 10/10/21 07:32 Pulse 94 10/10/21 07:50 Resp 28 H 10/10/21 07:50 BP 139/60 10/10/21 07:32 Pulse Ox 90 L 10/10/21 09:34 Oxygen Flow Rate 2 10/04/21 18:40 BMI result Body Mass Index 27.4 Appearing in resp distress, very tachypneic lung sounds work of breathing heart regular rate rhythm, clear S1, S2 positive bowel sounds, abdomen is soft, nontender neuro patient is alert , confused and agitated Objective Data Active Medications Acetaminophen (Acetaminophen 325 Mg Tablet) 650 mg PO Q6H PRN PRN Reason: Pain, Mild (Pain Scale 1-3) Acetaminophen (Acetaminophen Supp 650 Mg Supp.Rect) 650 mg [place] Q6H PRN PRN Reason: Pain, Mild (Pain Scale 1-3) Last Admin: 10/10/21 03:42 Dose: 650 mg Documented by: JOSEPHINE Albuterol/Ipratropium (Albuterol/Iprat 2.5/0.5mg 3 Ml Ampul.Neb) 3 ml INHALE RQ4H PRN PRN Reason: Shortness of Breath/Wheezing Albuterol/Ipratropium (Albuterol/Iprat 2.5/0.5mg 3 Ml Ampul.Neb) 3 ml INHALE RQ4H WHILE AWAKE [facility] Last Admin: 10/10/21 07:45 Dose: 3 ml Documented by: KATINA Artificial Tears (Artificial Tears 15 Ml Drops) 1 drop EYE-BOTH BID [facility] Last Admin: 10/10/21 08:03 Dose: Not Given Documented by: BLAIR Non-Admin Reason: not available Aspirin (Aspirin 81 Mg Tab.Chew) 81 mg PO DAILY [facility] Last Admin: 10/10/21 08:04 Dose: Not Given Documented by: BLAIR Non-Admin Reason: NPO Baricitinib (Baricitinib 2 Mg Tablet) 4 mg PO Q24H [facility] Stop: 10/22/21 11:01 Last Admin: 10/09/21 12:31 Dose: Not Given Documented by: FRANCHESKA Non-Admin Reason: NPO Benztropine Mesylate (Benztropine Mesylate 1 Mg Tablet) 1 mg PO BID [facility] Last Admin: 10/10/21 08:04 Dose: Not Given Documented by: BLAIR Non-Admin Reason: unable to swallow Bisacodyl (Bisacodyl 10 Mg Supp.Rect) 10 mg [place] Q2D@1000 [facility] Last Admin: 10/09/21 16:40 Dose: 10 mg Documented by: FRANCHESKA Dexamethasone Sodium Phosphate (Dexamethasone Sod Phosphate 4 Mg/Ml Vial) 6 mg IVPUSH DAILY [facility] Last Admin: 10/10/21 08:09 Dose: 6 mg Documented by: BLAIR Dextrose (Dextrose 50 % 25 Gm/50 Ml Syringe) 25 gm IVPUSH Q15M PRN; Protocol PRN Reason: per Hypoglycemia Standing Ord. Divalproex Sodium (Divalproex Sodium Sprinkles 125 Mg Spr) 500 mg PO DAILY [facility] Last Admin: 10/10/21 08:04 Dose: Not Given Documented by: BLAIR Non-Admin Reason: unable to swallow Divalproex Sodium (Divalproex Sodium Sprinkles 125 Mg Spr) 1,500 mg PO BEDTIME [facility] Last Admin: 10/09/21 21:23 Dose: Not Given Documented by: JOSEPHINE Non-Admin Reason: NPO Docusate Sodium (Docusate Sodium 100 Mg Capsule) 100 mg PO DAILY PRN PRN Reason: Constipation Enoxaparin Sodium (Enoxaparin Sodium 40 Mg/0.4 Ml Syringe) 40 mg SUBCUT Q24H [facility] Last Admin: 10/09/21 20:45 Dose: 40 mg Documented by: JOSEPHINE Gabapentin (Gabapentin 300 Mg Capsule) 300 mg PO DAILY [facility] Last Admin: 10/10/21 08:04 Dose: Not Given Documented by: BLAIR Non-Admin Reason: unable to swallow Glucose (Glucose Gel 15 Gm Gel..Gram.) 15 gm PO Q15M PRN; Protocol PRN Reason: per Hypoglycemia Standing Ord. Haloperidol (Haloperidol 5 Mg Tablet) 5 mg PO BID [facility] Last Admin: 10/10/21 08:01 Dose: 5 mg Documented by: BLAIR Insulin Human Lispro (Insulin Lispro 100 Unit/Ml 3 Ml Vial) 0 unit SUBCUT QIDACHS [facility]; Protocol Last Admin: 10/10/21 08:02 Dose: Not Given Documented by: BLAIR Non-Admin Reason: No Insulin Coverage Latanoprost (Latanoprost 0.005 % Ophth Iza 2.5 Ml Drops) 1 drop EYE-BOTH BEDTIME [facility] Last Admin: 10/09/21 20:46 Dose: 1 drop Documented by: JOSEPHINE Levothyroxine Sodium (Levothyroxine Sodium 88 Mcg Tablet) 88 mcg PO DAILY@0600 [facility] Last Admin: 10/10/21 05:26 Dose: Not Given Documented by: JOSEPHINE Non-Admin Reason: NPO [place] Carbonate (Peck Carbonate Er 300 Mg Tablet.Er) 300 mg PO BID [facility] Last Admin: 10/10/21 08:05 Dose: Not Given Documented by: BLAIR Non-Admin Reason: unable to swallow Lorazepam (Lorazepam 2 Mg/Ml Vial) 1 mg IVPUSH Q4H PRN PRN Reason: agitation Mirabegron (Mirabegron 25 Mg Tab.Er.24h) 25 mg PO DAILY [facility] Last Admin: 10/10/21 08:05 Dose: Not Given Documented by: BLAIR Non-Admin Reason: unable to swallow Morphine Sulfate (Morphine Sulfate 2 Mg/Ml Cartridge) 2 mg IVPUSH Q2H PRN; Protocol PRN Reason: Restlessness Last Admin: 10/10/21 09:57 Dose: 2 mg Documented by: BLAIR Olanzapine (Olanzapine 10 Mg Tablet) 10 mg PO DAILY [facility] Last Admin: 10/10/21 08:09 Dose: 10 mg Documented by: BLAIR Olanzapine (Olanzapine 10 Mg Tablet) 20 mg PO BEDTIME [facility] Last Admin: 10/09/21 21:23 Dose: Not Given Documented by: JOSEPHINE Non-Admin Reason: NPO Omeprazole (Omeprazole 40 Mg Capsule.Dr) 40 mg PO DAILY@0630 [facility] Last Admin: 10/10/21 05:26 Dose: Not Given Documented by: JOSEPHINE Non-Admin Reason: NPO Ondansetron HCl (Ondansetron Hcl 4 Mg/2 Ml Vial) 4 mg IVPUSH Q8H PRN PRN Reason: Nausea and Vomiting Polyethylene Glycol (Polyethylene Glycol 3350 17 Gm Powd.Pack) 17 gm PO DAILY [facility] Last Admin: 10/10/21 08:05 Dose: Not Given Documented by: BLAIR Non-Admin Reason: Wrong Patient Tiotropium Wilder (Tiotropium Wilder 18 Mcg Cap.W.Dev) 1 puff INHALE RDAILY DAVID Last Admin: 10/10/21 07:43 Dose: Not Given Documented by: VIVIEN Non-Admin Reason: pt unable Labs CBC & Chem 7: 10/10/21 05:30 10/10/21 05:30 Labs: Laboratory Results - last 24 hr 10/09/21 10/09/21 10/09/21 11:10 16:02 20:44 MCV MCH MCHC RDW Plt Count MPV Immature Gran % (Auto) Neut % (Auto) Lymph % (Auto) [place] % (Auto) Eos % (Auto) Baso % (Auto) Lymph # (Auto) [place] # (Auto) Eos # (Auto) Baso # (Auto) Abs Immat Gran (auto) Absolute Neuts (auto) Absolute Nucleated RBC Nucleated RBC % (auto) Anion Gap Estim Creat Clear Calc Estimated GFR POC Glucose 101 146 H 183 H Random Glucose Calcium 10/10/21 10/10/21 10/10/21 05:30 05:30 07:30 MCV 94.1 MCH 29.7 MCHC 31.5 RDW 13.7 Plt Count 219 D MPV 10.7 Immature Gran % (Auto) 2.1 H Neut % (Auto) 83.9 H Lymph % (Auto) 9.5 L [place] % (Auto) 4.3 Eos % (Auto) 0.0 Baso % (Auto) 0.2 Lymph # (Auto) 0.9 L [place] # (Auto) 0.4 Eos # (Auto) 0.0 Baso # (Auto) 0.0 Abs Immat Gran (auto) 0.20 H Absolute Neuts (auto) 8.0 Absolute Nucleated RBC 0.040 H Nucleated RBC % (auto) 0.4 H Anion Gap 11 L Estim Creat Clear Calc 96.0 Estimated GFR > 60 POC Glucose 110 Random Glucose 123 H Calcium 8.5 Microbiology Microbiology Results: Microbiology 10/04/21 20:37 Blood Culture - Final Blood - Venous No growth after 5 days. 10/04/21 19:52 Blood Culture - Final Blood - Venous No growth after 5 days. Assessment and Plan (1) Encephalopathy: Status: Acute (2) Acute respiratory failure due to COVID-19: Status: Acute Plan This is a 71 yo F with pmx as above who is a [place] resident, unvaccinated against covid who presents to hospital with acute hypoxic resp failure Acute hypoxic resp failure secondary to covid 19 PNA (unvaccinated) Worsening, sat 70% on both high flow and NRB very agitated, prn morphine and ativan dexamethasone, duonebs seen by ID, rec baricitinib, d/c abx seen by ICU 10/08, discussed goals of care with over the phone. pt changed to DNR/DNI and plan for comfort care if she worsens Acute metabolic encephalopathy likely secondary to covid Hypernatremia. resolved r/t volume depletion stop fluids follow BMP Viral Sepsis secondary to covid 19 pna Blood cultures negative Hypotension. stable rapid response called 10/05, see event note 2 liter bolus given, BP has remained stable Mood continue home mood medications when able to take PO hypothyroid continue synthroid when able to take po DVT ppx: lovenox Attending Dr. Lance HCP/guardian - Kd updated on worsening respiratory status and poor prognosis as above. changed to DNR/DNI, plan for comfort care if she should worsen. Call back today 10/10, left message Quality Stroke Does the patient have a stroke diagnosis?: No VTE Prior VTE?: No VTE Risk Level:: Medical - moderate - high VTE Device Contraindication: Treatment Not Indicated VTE Drug Contraindication: N/A - Med Ordered
[2021-10-10] MEDS: LORazepam 2 MG/ML VIAL 1 MG IVPUSH ×2 (11:00→18:04)
[2021-10-10 11:27] LABS: Glucose, Whole Blood 139 mg/dL (60-115)
--- NOTE | 2021-10-10 14:50 | MHC.CLN ---
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
[2021-10-10 16:06] LABS: Glucose, Whole Blood 139 mg/dL (60-115)
[2021-10-10 19:44] LABS: Glucose, Whole Blood 114 mg/dL (60-115)
[2021-10-10] MEDS: Latanoprost 0.005 % Ophth Sol 2.5 ML DROPS 1 DROP EYE-BOTH (20:47)
[2021-10-10] MEDS: Enoxaparin Sodium 40 MG/0.4 ML SYRINGE SUBCUT (20:51)
[2021-10-11] VITALS (7 sets, daily range): BP systolic 93–106; BP diastolic 57–62; PULSE 62–96; RESP 20–24; TEMP 37.8–38.3; O2SAT 89–92
[2021-10-11] MEDS: LORazepam 2 MG/ML VIAL 1 MG IVPUSH ×2 (01:28→17:36)
--- NOTE | 2021-10-11 05:04 | PC.NURSE ---
7p-11p shift; called for an update, would like a call back from MD in the morning to discuss patient's plan of care, preferably before 0930 am due to work. 's name; Kd Cohen RN notified at change of shift 2300.
[2021-10-11 07:19] LABS: Glucose, Whole Blood 101 mg/dL (60-115)
[2021-10-11] MEDS: Albuterol/Iprat 2.5/0.5MG 3 ML AMPUL.NEB INHALE ×2 (07:52→11:22)
[2021-10-11] MEDS: Morphine Sulfate 2 MG/ML CARTRIDGE IVPUSH ×2 (09:38→11:45)
[2021-10-11] MEDS: dexAMETHasone sod phosphate 4 MG/ML VIAL 6 MG IVPUSH (09:38)
[2021-10-11 10:55] LABS: Glucose, Whole Blood 119 mg/dL (60-115)
--- NOTE | 2021-10-11 11:39 | HO.PM.IMPN ---
Subjective Subjective Date of Service: 10/11/21 Interval History: seen and examined this AM not responsive to verbal stimuli Physical Exam Vital Signs: Vital Signs: Last Vital Signs Temp 101.0 F H 10/11/21 11:01 Pulse 96 10/11/21 11:01 Resp 24 H 10/11/21 11:22 BP 93/62 10/11/21 11:01 Pulse Ox 92 10/11/21 11:01 Oxygen Flow Rate 2 10/04/21 18:40 BMI result Body Mass Index 27.4 Const: Other: General - in respiratory distress, moaning Cardiovascular - S1S2 Lungs - tachypnea with respiratory distress depiste HFNC + NRM Abdomen - soft, nontender, no rebound or guarding Extremities - no edema bilaterally Neuro - obtunded; moaning Objective Data Active Medications Acetaminophen (Acetaminophen 325 Mg Tablet) 650 mg PO Q6H PRN PRN Reason: Pain, Mild (Pain Scale 1-3) Acetaminophen (Acetaminophen Supp 650 Mg Supp.Rect) 650 mg [place] Q6H PRN PRN Reason: Pain, Mild (Pain Scale 1-3) Last Admin: 10/10/21 03:42 Dose: 650 mg Documented by: JOSEPHINE Albuterol/Ipratropium (Albuterol/Iprat 2.5/0.5mg 3 Ml Ampul.Neb) 3 ml INHALE RQ4H PRN PRN Reason: Shortness of Breath/Wheezing Albuterol/Ipratropium (Albuterol/Iprat 2.5/0.5mg 3 Ml Ampul.Neb) 3 ml INHALE RQ4H WHILE AWAKE [facility] Last Admin: 10/11/21 11:22 Dose: 3 ml Documented by: VIVIEN Artificial Tears (Artificial Tears 15 Ml Drops) 1 drop EYE-BOTH BID [facility] Last Admin: 10/11/21 11:25 Dose: Not Given Documented by: SRINIVASA Non-Admin Reason: pt too ill Aspirin (Aspirin 81 Mg Tab.Chew) 81 mg PO DAILY [facility] Last Admin: 10/11/21 09:39 Dose: Not Given Documented by: SRINIVASA Non-Admin Reason: NPO Baricitinib (Baricitinib 2 Mg Tablet) 4 mg PO Q24H [facility] Stop: 10/22/21 11:01 Last Admin: 10/11/21 09:40 Dose: Not Given Documented by: SRINIVASA Non-Admin Reason: NPO Benztropine Mesylate (Benztropine Mesylate 1 Mg Tablet) 1 mg PO BID [facility] Last Admin: 10/11/21 09:39 Dose: Not Given Documented by: SRINIVASA Non-Admin Reason: NPO Bisacodyl (Bisacodyl 10 Mg Supp.Rect) 10 mg SC Q2D@1000 [facility] Last Admin: 10/11/21 11:24 Dose: Not Given Documented by: SRINIVASA Non-Admin Reason: pt too uncomfortble and squirming Dexamethasone Sodium Phosphate (Dexamethasone Sod Phosphate 4 Mg/Ml Vial) 6 mg IVPUSH DAILY [facility] Last Admin: 10/11/21 09:38 Dose: 6 mg Documented by: SRINIVASA Dextrose (Dextrose 50 % 25 Gm/50 Ml Syringe) 25 gm IVPUSH Q15M PRN; Protocol PRN Reason: per Hypoglycemia Standing Ord. Divalproex Sodium (Divalproex Sodium Sprinkles 125 Mg Spr) 500 mg PO DAILY [facility] Last Admin: 10/11/21 09:39 Dose: Not Given Documented by: SRINIVASA Non-Admin Reason: NPO Divalproex Sodium (Divalproex Sodium Sprinkles 125 Mg Spr) 1,500 mg PO BEDTIME [facility] Last Admin: 10/10/21 20:48 Dose: Not Given Documented by: JANELLE Non-Admin Reason: unable to swallow Docusate Sodium (Docusate Sodium 100 Mg Capsule) 100 mg PO DAILY PRN PRN Reason: Constipation Enoxaparin Sodium (Enoxaparin Sodium 40 Mg/0.4 Ml Syringe) 40 mg SUBCUT Q24H [facility] Last Admin: 10/10/21 20:51 Dose: 40 mg Documented by: JANELLE Gabapentin (Gabapentin 300 Mg Capsule) 300 mg PO DAILY [facility] Last Admin: 10/11/21 09:39 Dose: Not Given Documented by: SRINIVASA Non-Admin Reason: NPO Glucose (Glucose Gel 15 Gm Gel..Gram.) 15 gm PO Q15M PRN; Protocol PRN Reason: per Hypoglycemia Standing Ord. Haloperidol (Haloperidol 5 Mg Tablet) 5 mg PO BID [facility] Last Admin: 10/11/21 09:39 Dose: Not Given Documented by: SRINIVASA Non-Admin Reason: NPO Insulin Human Lispro (Insulin Lispro 100 Unit/Ml 3 Ml Vial) 0 unit SUBCUT QIDACHS [facility]; Protocol Last Admin: 10/11/21 11:38 Dose: Not Given Documented by: SRINIVASA Non-Admin Reason: No Insulin Coverage Latanoprost (Latanoprost 0.005 % Ophth Iza 2.5 Ml Drops) 1 drop EYE-BOTH BEDTIME [facility] Last Admin: 10/10/21 20:47 Dose: 1 drop Documented by: JANELLE Levothyroxine Sodium (Levothyroxine Sodium 88 Mcg Tablet) 88 mcg PO DAILY@0600 [facility] Last Admin: 10/11/21 05:42 Dose: Not Given Documented by: KAN Non-Admin Reason: NPO [place] Carbonate ([place] Carbonate Er 300 Mg Tablet.Er) 300 mg PO BID [facility] Last Admin: 10/11/21 09:39 Dose: Not Given Documented by: SRINIVASA Non-Admin Reason: NPO Lorazepam (Lorazepam 2 Mg/Ml Vial) 1 mg IVPUSH Q4H PRN PRN Reason: agitation Last Admin: 10/11/21 01:28 Dose: 1 mg Documented by: KAN Mirabegron (Mirabegron 25 Mg Tab.Er.24h) 25 mg PO DAILY [facility] Last Admin: 10/11/21 09:40 Dose: Not Given Documented by: SRINIVASA Non-Admin Reason: NPO Morphine Sulfate (Morphine Sulfate 2 Mg/Ml Cartridge) 2 mg IVPUSH Q2H PRN; Protocol PRN Reason: Restlessness Last Admin: 10/11/21 09:38 Dose: 2 mg Documented by: SRINIVASA Olanzapine (Olanzapine 10 Mg Tablet) 10 mg PO DAILY [facility] Last Admin: 10/11/21 09:40 Dose: Not Given Documented by: SRINIVASA Non-Admin Reason: NPO Olanzapine (Olanzapine 10 Mg Tablet) 20 mg PO BEDTIME [facility] Last Admin: 10/10/21 20:49 Dose: Not Given Documented by: JANELLE Non-Admin Reason: unable to swallow Omeprazole (Omeprazole 40 Mg Capsule.Dr) 40 mg PO DAILY@0630 [facility] Last Admin: 10/11/21 05:42 Dose: Not Given Documented by: KAN Non-Admin Reason: NPO Ondansetron HCl (Ondansetron Hcl 4 Mg/2 Ml Vial) 4 mg IVPUSH Q8H PRN PRN Reason: Nausea and Vomiting Polyethylene Glycol (Polyethylene Glycol 3350 17 Gm Powd.Pack) 17 gm PO DAILY [facility] Last Admin: 10/11/21 09:40 Dose: Not Given Documented by: SRINIVASA Non-Admin Reason: NPO Tiotropium [place] (Tiotropium [place] 18 Mcg Cap.W.Dev) 1 puff INHALE RDAILY [facility] Last Admin: 10/11/21 07:50 Dose: Not Given Documented by: VIVIEN Non-Admin Reason: pt unable Labs CBC & Chem 7: 10/10/21 05:30 10/10/21 05:30 Labs: Laboratory Results - last 24 hr 10/10/21 10/10/21 10/11/21 16:03 19:41 07:12 POC Glucose 139 H 114 101 10/11/21 10:51 POC Glucose 119 H Assessment and Plan (1) Encephalopathy: Status: Acute (2) Acute respiratory failure due to COVID-19: Status: Acute Plan This is a 71 yo F with pmx as above who is a [place] resident, unvaccinated against covid who presents to hospital with acute hypoxic resp failure Acute hypoxic resp failure secondary to covid 19 PNA (unvaccinated) patient continues to decline and now appears to be in worsening distress and pain d/w her over the phone -- he would like to pursue MACHINE ETCHER. Will try to come see her Acute metabolic encephalopathy likely secondary to covid + hypoxia + hyperNa Hypernatremia due to poor oral intake Viral Sepsis secondary to covid 19 pna Blood cultures negative Hypotension. stable rapid response called 10/05, see event note 2 liter bolus given, BP has remained stable Mood continue home mood medications when able to take PO hypothyroid continue synthroid when able to take po DVT ppx: lovenox to come see her. Change to MACHINE ETCHER once he arrives. Quality Stroke Does the patient have a stroke diagnosis?: No VTE Prior VTE?: No VTE Risk Level:: Medical - moderate - high VTE Device Contraindication: Treatment Not Indicated VTE Drug Contraindication: N/A - Med Ordered
[2021-10-11] MEDS: Acetaminophen Supp 650 MG SUPP.RECT PR (11:46)
[2021-10-11] MEDS: Morphine Sulfate 2 MG/ML CARTRIDGE 4 MG IVPUSH ×3 (14:36→21:31)
--- NOTE | 2021-10-11 14:49 | PM.EVENT ---
Event Note Date of Service: 10/11/21 Event Note: Patients came in. 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 IV morphine dose increased due to insufficient relief of distress. To remove HFNC first followed by NRM. Given her degree of hypoxia and oxygen requirements, suspect is imminent once oxygen removed. Unlikely to transition to hospice facility.
[2021-10-11] MEDS: Scopolamine 1.5 MG PATCH.TD.3 EAR-BEHIND (17:30)
[2021-10-12] VITALS: RESP 20
[2021-10-12] MEDS: Morphine Sulfate 2 MG/ML CARTRIDGE 4 MG IVPUSH ×5 (01:52→15:22)
--- NOTE | 2021-10-12 14:31 | MHC.CLN ---
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
--- NOTE | 2021-10-12 14:51 | P.PNIM_ITS ---
Subjective Subjective Date of Service: 10/12/21 Review of Systems seen and examined this AM not responsive to verbal stimuli Physical Exam Verdana 4l Vital Signs: Verdana 4d Verdana 4d Vital Signs: Verdana 4d Verdana 4Bd Last Vital Signs Verdana 4d Geriatric Nurse New 4d Geriatric Nurse New 4d Temp 101.0 F H 10/11/21 11:01 Geriatric Nurse New 4d Pulse 96 10/11/21 11:01 Geriatric Nurse New 4d Resp 20 10/12/21 00:00 BP 93/62 10/11/21 11:01 Pulse Ox 92 10/11/21 11:01 Oxygen Flow Rate 2 10/04/21 18:40 BMI result Body Mass Index 27.4 Appearing in no acute distress lung sounds normal expansion heart regular rate rhythm, clear S1, S2 positive bowel sounds, abdomen is soft, nontender neuro patient is lethergic Objective Data Active Medications Acetaminophen (Acetaminophen Supp 650 Mg Supp.Rect) 650 mg [place] Q6H PRN PRN Reason: Pain, Mild (Pain Scale 1-3) Last Admin: 10/11/21 11:46 Dose: 650 mg Documented by: SRINIVASA Atropine Sulfate (Atropine Sulfate 1 % Ophth Iza 2 Ml Bottle) 2 drop SUBLINGUAL Q2H PRN PRN Reason: Secretions Lorazepam (Lorazepam 2 Mg/Ml Vial) 1 mg IVPUSH Q4H PRN PRN Reason: agitation Last Admin: 10/11/21 17:36 Dose: 1 mg Documented by: Morphine Sulfate (Morphine Sulfate 2 Mg/Ml Cartridge) 4 mg IVPUSH Q1H PRN; Protocol PRN Reason: Restlessness Last Admin: 10/12/21 10:51 Dose: 4 mg Documented by: SRINIVASA Ondansetron HCl (Ondansetron Hcl 4 Mg/2 Ml Vial) 4 mg IVPUSH Q8H PRN PRN Reason: Nausea and Vomiting Scopolamine (Scopolamine 1.5 Mg Patch.Td.3) 1.5 mg EAR-BEHIND Q72H DAVID Last Admin: 10/11/21 17:30 Dose: 1.5 mg Documented by: SRINIVASA Labs CBC & Chem 7: 10/10/21 05:30 10/10/21 05:30 Assessment and Plan (1) Encephalopathy: Status: Acute (2) Acute respiratory failure due to COVID-19: Status: Acute Plan This is a 71 yo F with pmx as above who is a [place] resident, unvaccinated against covid who presents to hospital with acute hypoxic resp failure 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 Looks comfortable off NRB. Continue supportive care Initial diagnosis Acute hypoxic resp failure secondary to covid 19 PNA (unvaccinated) Acute metabolic encephalopathy Hypernatremia Viral Sepsis secondary to covid 19 pna Hypotension. ELECTRONIC ENGINEERING TECHNICIAN Attending Dr. Lance Quality Stroke Does the patient have a stroke diagnosis?: No VTE Prior VTE?: No VTE Risk Level:: Medical - moderate - high VTE Device Contraindication: Treatment Not Indicated VTE Drug Contraindication: N/A - Med Ordered
[2021-10-12] MEDS: LORazepam 2 MG/ML VIAL 1 MG IVPUSH (15:22)
--- NOTE | 2021-10-12 15:55 | MHC.CM.PN ---
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 DP to remain on I[facility] per MD rounds.
--- NOTE | 2021-10-12 18:05 | PM.EVENT ---
Event Note Date of Service: 10/12/21 Event Note: This patient who has been comfort care with expected , became unresponsive, on exam: no heart sounds, no lung sounds, pupils dilated and fixed no resonse to painful stimuli. Family notified. Time of : 6:00 pm. Cause of : Acute hypoxic resp failure secondary to covid 19 PNA (unvaccinated)
--- NOTE | 2021-10-12 18:07 | P.DN_ITS ---
Discharge Sum: Prov Provider Primary care physician: Beronica Melissa MD <Alejandra Urena NP - Last Filed: 10/12/21 18:20> Consults: 10/04/21 20:29 Consult to Infectious Diseases Routine Consulting Provider: Thania Clinton Reason for consultation: COVID 19 PNA, hypoxic Has provider been notified: No 10/08/21 09:32 Consult to Critical Care Routine Consulting Provider: Junior Tapia Reason for consultation: covid + increased wob, hypoxia Has provider been notified: Yes <Alejandra Urena NP - Last Filed: 10/12/21 18:20> Pronouncing clinician: Rojelio Nguyen <Alejandra Urena NP - Last Filed: 10/12/21 18:20> Discharge Sum: Diag Contributing Factors (1) Encephalopathy: (2) Acute respiratory failure due to COVID-19: Discharge Sum: Summary Date and Time Date of admission: 10/04/21 20:32 <Alejandra Urena NP - Last Filed: 10/12/21 18:20> Date of : 10/12/21 <Alejandra Urena NP - Last Filed: 10/12/21 18:20> Time of : 18:00 <Alejandra Urena NP - Last Filed: 10/12/21 18:20> Summary Details: HP as per admitting provider This is a 71 yo F with hx of schizophrenia, DM, COPD, and chronic anemia who [facility] hypoxia. per documentation pt was found to be satin gin the 70s on RA. Pt herself is awake, but very lethargic and confused. she is not answering questions and just moaning. unable to get my history from her. No ROS given her medical status,.Pt is unvaccinated against covid. was tested positive for COVID 19 on 09/30 at the facility. Pt was also found to have a temp of 102 at the prison. On arrival to our hospital pt found to have a Temp of 102.3 , BP of 100/54. pt currently on 3L of [place] the mid 80s. labs reviewed, unremarkable, procalcitonin 0.11, chest xray showed patchy bilateral airspace ds [place] acerning for atypical or viral infectious etiology in the acute setting Pt will be admitted for further management PMHX obtained from [facility] home notes Patient initally treated for acute hypoxic resp failure secondary to covid 19 PNA (unvaccinated). She was treated with steroids, baricitinib and antibiotics. Despite oxygen therapy with high flow and NRB she continued to deteriorate with hypoxia as low as 70%. She developed some episodes of agitation and hypotension at one point that required a rapid response call. Goals of care conversation was had with her on 10/08/21, over the phone. She was subsequently changed to DNR/DNI and then comfort measures only. Her pronouncement of was at 1800. Her Kd was made aware. Acute metabolic encephalopathy Hypernatremia. Viral Sepsis secondary to covid 19 pna Hypotension. <Alejandra Urena NP - Last Filed: 10/12/21 18:20> HP as per admitting provider This is a 71 yo F with hx of schizophrenia, DM, COPD, and chronic anemia who is [facility] the Hospital [facility] for hypoxia. per documentation pt was found to be satin [place] the 70s on RA. Pt herself is awake, but very lethargic and confused. she is not answering questions and just moaning. unable to get my history from her. No ROS given her medical status,.Pt is unvaccinated against covid. was tested positive for COVID 19 on 09/30 at the facility. Pt was also found to have a temp of 102 at the prison. On arrival to our hospital pt found to have a Temp of 102.3 , BP of 100/54. pt currently on 3L of [place] joshdelvin friedman the mid 80s. labs reviewed, unremarkable, procalcitonin 0.11, chest xray showed patchy bilateral airspace ds [place] acerning for atypical or viral infectious etiology in the acute setting Pt will be admitted for further management PMHX obtained from [facility] home notes Patient initally treated for acute hypoxic resp failure secondary to covid 19 PNA (unvaccinated). She was treated with steroids, baricitinib and antibiotics. Despite oxygen therapy with high flow and NRB she continued to deteriorate with hypoxia as low as 70%. She developed some episodes of agitation and hypotension at one point that required a rapid response call. Goals of care conversation was had with her on 10/08/21, over the phone. She was subsequently changed to DNR/DNI and then comfort measures only. Her pronouncement of was at 1800. Her Kd was made aware. Acute metabolic encephalopathy Hypernatremia. Viral Sepsis secondary to covid 19 pna Hypotension Acute respiratory failure with hypoxia <Pato Lance MD - Last Filed: 10/13/21 08:37> Additional Data Attending physician: Alejandra Urena NP <Alejandra Urena NP - Last Filed: 10/12/21 18:20>
== END 2021-10-12 18:00 | disposition expired | DRG 871 ==
LOC: HO.ED 21:02 → HO.EDOVER 22:01 → HO.IMC 10-05 11:16
PROVIDERS: Family Medicine; Physician Assistant Medical; Admitting Provider Internal Medicine; Emergency Provider Internal Medicine; PCP Internal Medicine; Visit Provider Nurse Practitioner Acute Care
DX: A41.89 Other specified sepsis (principal); U07.1 COVID-19; J96.01 Acute respiratory failure with hypoxia; J12.89 Other viral pneumonia; G93.41 Metabolic encephalopathy; E87.0 Hyperosmolality and hypernatremia; J44.0 Chronic obstructive pulmonary disease with (acute) lower respiratory infection; J44.1 Chronic obstructive pulmonary disease with (acute) exacerbation; N17.9 Acute kidney failure, unspecified; E03.9 Hypothyroidism, unspecified; I95.9 Hypotension, unspecified; F25.9 Schizoaffective disorder, unspecified; Z79.82 Long term (current) use of aspirin; Z79.890 Hormone replacement therapy; Z79.899 Other long term (current) drug therapy; Z66 Do not resuscitate; Z51.5 Encounter for palliative care
CPT/HCPCS: 36415; 36600; 71045; 80048; 80053; 82728; 82803; 82947; 83605; 83615; 83735; 83880; 84145; 85025; 85027; 85379; 85610; 86140; 87040; 87635; 93005; 94640; 96365; 96375; 99285; J0456; J0696; J1100; J1650; J2060; J2270